=== PATIENT | male | born 1930 | race Caucasian/White ===

== ENCOUNTER 2017-06-05 08:13 | Observation (INO) | payer BC ==
[~2017-06-05] VITALS: Ht 185.4 cm; Wt 79.6 kg
--- OUTSIDE RECORDS SUMMARY | ~2017-06-05 | XMS | Clinical Summary ---
Demographics + + + | Address | [address] | | | [place] [address] | + + + | Home Phone | | + + + | Preferred Language | Unknown | + + + | Marital Status | | + + + | Uatsdin Affiliation | Unknown | + + + | Race | Unknown | + + + | Ethnic Group | Unknown | + + + Author + + + | Author | [facility] | | | and [place] | + + + | Organization | [facility] | | | and [place] | + + + | Address | Unknown | + + + | Phone | Unavailable | + + + Support + + +---------+ + | Name | Relationship | Address | Phone | + + +---------+ + | EYAD ZENDEJAS ECON | Unknown | | + + +---------+ + Care Team Providers + +------+ + | Care Child And Family Services Specialist Name | Role | Phone | + +------+ + PP | Unavailable | + +------+ + Allergies Not on File Current Medications Not on file Active Problems Not on file Social History + +-------+ +--------+------+ | Tobacco Use | Types | Packs/Day | Years | Date | | | | | Used | | + +-------+ +--------+------+ | Never Assessed | | | | | + +-------+ +--------+------+ + + + | Sex Assigned at | Date Recorded | | | | + + + | Not on file | | + + + Plan of Treatment + + + + + | Health Maintenance | Due Date | Last Done | Comments | + + + + + | Vaccine: | | | | | Dtap/Tdap/Td (1 - | 0 | | | | Tdap) | | | | + + + + + | Vaccine: Zoster (#1) | | | | | | 1 | | | + + + + + | Vaccine: | | | | | Pneumococcal 65+ | 6 | | | | Low/Medium Risk (1 | | | | | of 2 - PCV13) | | | | + + + + + | Vaccine: Influenza | | | | | (Season Ended) | 8 | | | + + + + + Results Not on filefrom Last 3 Months"
--- OUTSIDE RECORDS SUMMARY | ~2017-06-05 | XMS | Clinical Summary ---
Demographics + + + | Address | [address] | | | [place] [address] | + + + | Home Phone | | + + + | Preferred Language | Unknown | + + + | Marital Status | Unknown | + + + | Mormon Affiliation | Unknown | + + + | Race | Unknown | + + + | Ethnic Group | Unknown | + + + Author + + + | Author | [facility] [employer] | + + + | Organization | [facility] | + + + | Address | Unknown | + + + | Phone | Unavailable | + + + Support + + +---------+ + | Name | Relationship | Address | Phone | + + +---------+ + | Kelli Syed | ECON | Unknown | | + + +---------+ + Care Team Providers + +------+ + | Care Senior Hadoop Developer Name | Role | Phone | + +------+ + | Hitzman, Daniel C MD | PP | | + +------+ + Allergies + + + + + + | Active Allergy | Reactions | Severity | Noted | Comments | | | | | Date | | + + + + + + | Latex | Hives, Rash | High | 01/25/20 | | | | | | 16 | | + + + + + + Current Medications + + +--------+---------+------+------+-------+ | Prescription | Sig. | Disp. | Refills | Star | End | Statu | | | | | | t | Date | s | | | | | | Date | | | + + +--------+---------+------+------+-------+ | Nattokinase 100 MG | Take 100 mg by mouth | | | | | Activ | | CAPS | every evening. | | | | | e | + + +--------+---------+------+------+-------+ | lisinopril | Take 5 mg by mouth | | | | | Activ | | (ZESTRIL) 5 MG | daily. | | | | | e | | tablet | | | | | | | + + +--------+---------+------+------+-------+ | spironolactone | Take 25 mg by mouth | | | | | Activ | | (ALDACTONE) 25 MG | daily. | | | | | e | | tablet | | | | | | | + + +--------+---------+------+------+-------+ | guaiFENesin | Take 600 mg by mouth | | | | | Activ | | (MUCINEX) 600 MG 12 | 2 (two) times | | | | | e | | hr tablet | daily. | | | | | | + + +--------+---------+------+------+-------+ | potassium chloride | Take 20 mEq by mouth | | | | | Activ | | SA (KSERVANDO HERNANDEZ) | 2 (two) times daily | | | | | e | | 20 MEQ tablet | with meals. | | | | | | + + +--------+---------+------+------+-------+ | levothyroxine | Take 100 mcg by | | | | | Activ | | (SYNTHROID) 100 MCG | mouth every morning | | | | | e | | tablet | before breakfast. | | | | | | + + +--------+---------+------+------+-------+ | Cholecalciferol | Take 5,000 Units by | | | | | Activ | | 5000 UNITS capsule | mouth daily. | | | | | e | + + +--------+---------+------+------+-------+ | melatonin 3 MG | Take 3 mg by mouth | | | | | Activ | | TABS | nightly. | | | | | e | + + +--------+---------+------+------+-------+ | Coenzyme Q10 | Take 50 mg by mouth | | | | | Activ | | (COQ10) 50 MG CAPS | 2 (two) times daily. | | | | | e | + + +--------+---------+------+------+-------+ | furosemide (LASIX) | Take 0.5 tablets by | | | 11/2 | | Activ | | 80 MG tablet | mouth 2 (two) times | | | 9/20 | | e | | | daily. | | | 16 | | | + + +--------+---------+------+------+-------+ | carvedilol (COREG) | Take 0.5 tablets by | 60 | 2 | 01/2 | | Activ | | 25 MG tablet | mouth 2 (two) times | tablet | | 5/20 | | e | | | daily with meals. | | | 17 | | | + + +--------+---------+------+------+-------+ | digoxin (LANOXIN) | Take 1 tablet by | 60 | 2 | 02/27 | | Activ | | 0.125 MG tablet | mouth daily. | tablet | | 07/15 | | e | | | | | | 17 | | | + + +--------+---------+------+------+-------+ Active Problems + + + | Problem | Noted Date | + + + | Persistent atrial fibrillation (HCC) | 01/25/2016 | + + + | Benign hypertension | 01/25/2016 | + + + | Cardiomyopathy (HCC) | 01/25/2016 | + + + Family History + + +------+ + | Medical History | Relation | Name | Comments | + + +------+ + | Diabetes type II | Mother | | | + + +------+ + | Heart disease | Mother | | | + + +------+ + + +------+ + + | Relation | Name | Status | Comments | + +------+ + + | Father | | | no history | + +------+ + + | Maternal Grandfather | | | | + +------+ + + | Maternal Grandmother | | | COPD, (smoker) | | | | (Age | | | | | 78) | | + +------+ + + | Mother | | | DMII, heart disease | | | | (Age | | | | | 76) | | + +------+ + + Social History + + + +--------+ + | Tobacco Use | Types | Packs/Day | Years | Date | | | | | Used | | + + + +--------+ + | Former Smoker | Cigarettes, Pipe | 1 | 15 | Quit: 02/26/1962 | + + + +--------+ + + +---+---+---+ | Smokeless Tobacco: | | | | | Never Used | | | | + +---+---+---+ + + +---------+ + | Alcohol Use | Drinks/We | oz/Week | Comments | | | ek | | | + + +---------+ + | No | 0 | 0.0 | | | | Standard | | | | | drinks or | | | | | | | | | | equivalen | | | | | t | | | + + +---------+ + + + + | Sex Assigned at | Date Recorded | | | | + + + | Not on file | | + + + Last Filed Vital Signs + + + + | Vital Sign | Reading | Time Taken | + + + + | Blood Pressure | 116/82 | 03/22/2016 11:08 AM PST | + + + + | Pulse | 163 | 03/22/2016 11:08 AM PST | + + + + | Temperature | - | - | + + + + | Respiratory Rate | 22 | 01/25/2016 3:10 PM PST | + + + + | Oxygen Saturation | 94% | 03/22/2016 11:08 AM PST | + + + + | Inhaled Oxygen | - | - | | Concentration | | | + + + + | Weight | 96 kg (211 lb 11.2 | 03/22/2016 11:08 AM PST | | | oz) | | + + + + | Height | 185.4 cm (6' 1") | 03/22/2016 11:08 AM PST | + + + + | Body Mass Index | 27.93 | 03/22/2016 11:08 AM PST | + + + + Plan of Treatment + [...] + Results Not on filefrom Last 3 Months Insurance +---------+--------+ +------+-------+ + | Payer | Benefi | Subscriber | Type | Phone | Address | | | t Plan | ID | | | | | | / | | | | | | | Group | | | | | +---------+--------+ +------+-------+ + | PREMERA | PREMER | xxxxxxxxx | | | [address] [address] | | | A BLUE | | | | [place] | | | [place]OSS | | | | [phone] | | | FED | | | | | | | PPO | | | | | +---------+--------+ +------+-------+ + + +--------+ +--------+ + + | Guarantor Name | Accoun | Relation to | Date | Phone | Billing Address | | | t Type | Patient | of | | | | | | | | | | + +--------+ +--------+ + + | CHAVEZ ZENDEJAS | Person | Self | [birth year] | Work: | [employer] [place], | | | bill/[employer] | | 1931 | [phone] | | | kumar | | | [phone]: | | | | | | | | | | | | | | [phone] | | | | | | [phone] | | + +--------+ +--------+ + +
--- OUTSIDE RECORDS SUMMARY | ~2017-06-05 | XMS | Clinical Summary ---
Demographics + + + | Address | [address] | | | [place] [address] | + + + | Home Phone | | + + + | Preferred Language | Unknown | + + + | Marital Status | | + + + | Uatsdin Affiliation | Unknown | + + + | Race | Unknown | + + + | Ethnic Group | Unknown | + + + Author + + + | Author | [facility] | | | and [place] | + + + | Organization | [facility] | | | and [...] Team Providers + +------+ + | Care Air And Water Tester Name | Role | Phone | + [...]
--- OUTSIDE RECORDS SUMMARY | ~2017-06-05 | XMS | Clinical Summary ---
Demographics + + + | Address | [address] | | | [place] [address] | + + + | Home Phone | | + + + | Preferred Language | Unknown | + + + | Marital Status | Single | + + + | Pentecostalism Affiliation | Unknown | + + + | Race | Unknown | + + + | Ethnic Group | Other Race | + + + Author + + + | Author | [facility] | + + + | Organization | [facility] | + + + | Address | Unknown | + + + | Phone | Unavailable | + + + Care Team Providers + +------+ + | Care Storage Wharfage Clerk Name | Role | Phone | + +------+ + PP | Unavailable | + +------+ + Source Comments DAINA is fully live on both [facility] and [facility] InPatient.[facility] Allergies Not on File Current Medications Not [...] | + + + + + | INFLUENZA VACCINE | | | | | (FLU SHOT) | 8 | | | + + + + + Results Not on filefrom Last 3 Months"
--- OUTSIDE RECORDS SUMMARY | ~2017-06-05 | XMS | Clinical Summary ---
Demographics + + + | Address | [address] | | | [place] [address] | + + + | Home Phone | | + + + | Preferred Language | Unknown | + + + | Marital Status | Single | + + + | Bahai Affiliation | Unknown | + + + | Race | Unknown | + + + | Ethnic Group | Other Race | + + + Author + + + | Author | [facility] | + + + | Organization | [facility] | + + + | Address | Unknown | + + + | Phone | Unavailable | + + + Care Team Providers + +------+ + | Care Software Installer Name | Role | Phone | + +------+ + PP | Unavailable | + +------+ + Source Comments DAINA is fully live on both [facility] and [facility] InPatient.[facility] Allergies Not on File Current Medications Not [...]
--- OUTSIDE RECORDS SUMMARY | ~2017-06-05 | XMS | Clinical Summary ---
Demographics + + + | Address | [address] | | | [place] [address] | + + + | Home Phone | | + + + | Preferred Language | Unknown | + + + | Marital Status | Unknown | + + + | Pentecostal Affiliation | Unknown | + + + | Race | Unknown | + + + | Ethnic Group | Unknown | + + + Author + + + | Author | [facility] [employer] | + + + | Organization | [facility] | + + + | Address | Unknown | + + + | Phone | Unavailable | + + + Support + + +---------+ + | Name | Relationship | Address | Phone | + + +---------+ + | Kelli Syed | ECON | Unknown | | + + +---------+ + Care Team Providers + +------+ + | Care Manager Sharepoint Name | Role | Phone | + [...] | xxxxxxxxx | | | [address] [address] | | | A BLUE | | | | [place] | | | [place] | | | | [phone] | | | FED | | | [...] | | bill/[employer]ani | | 1931 | [phone] | | | kumar | | | [phone]: | | | | | | | | | | | | | | [phone] | | | | | | | [phone] | | + +--------+ +--------+ + +
[2017-06-05] MEDS ORDERED: DIGOXIN125 MCG PO (08:44)
--- NOTE | 2017-06-05 12:43 | NUR ---
IV WAS STARTED IN THE ED. IT IS ACTUALLY IN THE LFT FOREARM NOT THE AC. FLUSHES EASILY.
[2017-06-05] MEDS ORDERED: LASIX80 MG PO (13:20)
--- NOTE | 2017-06-05 16:03 | NUR ---
been resting in bed, friend in room with him.
--- NOTE | 2017-06-05 16:44 | NUR ---
PATIENT SITTING UP IN BED. PATIENTS VISITOR IN ROOM. FRESH ICE WATER. CALL LIGHT WITHIN REACH. NO OTHER NEEDS AT THIS TIME.
[2017-06-05] MEDS ORDERED: APPLE CIDER VI600 MG PO (17:01)
[2017-06-05] MEDS ORDERED: NATTOKINASE PO (17:03)
[2017-06-05] MEDS ORDERED: BEET ROOT PO (17:04)
[2017-06-05] MEDS ORDERED: DIGESTIVE ENZYMES PO (17:06)
[2017-06-05] MEDS ORDERED: [UNRECOGNIZED DRUG - OTHER] (17:06)
--- NOTE | 2017-06-05 17:50 | NUR ---
VERY OPINIONATED, GETS UP QUICKLY TO URINATE. ELEVATING SCROTUM WITH TOWEL TO HELP REDUCE SWELLING. YOMBA SHOSHONE, RIGHT EAR BEST.
--- NOTE | 2017-06-05 18:40 | NUR ---
PATIENT SITTING UP IN BED VISITING WITH FAMILY MEMBERS. FRESH ICE WATER. CALL LIGHT WITHIN REACH. NO OTHER NEEDS AT THIS TIME.
--- NOTE | 2017-06-05 19:16 | NUR ---
IN ROOM FOR REPORT, PT HAS VISITORS IN THE ROOM AT THIS TIME. CALL LIGHT IS IN REACH AND PT DENIES NEEDS AT THIS TIME.
--- NOTE | 2017-06-05 21:14 | NUR ---
PT IS AWAKE IN BED, RT IS IN THE ROOM AT THIS TIME.
--- NOTE | 2017-06-05 21:45 | NUR ---
HELPED PT BACK TO BED FROM THE RESTROOM. TELE LEADS REPLACED AND PT IS BACK IN BED. PT STATES HE HAS SOME SORENESS IN LEGS FROM SWELLING BUT DENIES THE NEED OF TYLENOL AT THIS TIME. PT DENIES FURTHER NEEDS AT THIS TIME, CALL LIGHT IS WTIHIN REACH AND BED ALARM ON.
--- NOTE | 2017-06-05 23:18 | NUR ---
PT IS RESTING WITH EYES CLOSED, RESPIRATIONS ARE EVEN AND NONLABORED. CALL LIGHT IS WITHIN REACH AND BEDALARM IS ON.
--- NOTE | 2017-06-06 01:09 | NUR ---
PT IS RESTING WITH EYES CLOSED, RESPIRATIONS ARE EVEN AND NONLABORED. CALL LIGHT IS WITHIN REACH AND BED ALARM IS ON.
--- NOTE | 2017-06-06 03:04 | NUR ---
PT IS RESTING WITH EYES CLOSED, RESPIRATIONS EVEN AND NONLABORED. CALL LIGHT IS WITHIN REACH AND BEDALARM IS ON.
--- NOTE | 2017-06-06 04:58 | NUR ---
PT SLEPT WELL THROUGH THE NIGHT, HE IS A SBA WITH CANE. HE WEARS ATTENDS INCASE HE CANNOT MAKE IT TO THE RESTROOM IN TIME. HE IS ON TELE #8 HR RATE IS IRREGULAR. HE IS SWOLLEN IN BILAT LOWER EXTREMITIES AND SCROTUM. PT STATES IT IS BETTER BECAUSE HE "CAN SEE HIS KNEES NOW".
--- NOTE | 2017-06-06 05:03 | NUR ---
PT IS RESTING WITH EYES CLOSED, RESPIRATIONS ARE EVEN AND NONLABORED. CALL LIGHT IS WITHIN REACH.
--- NOTE | 2017-06-06 06:36 | EKG ---
[facility] [address] [facility] [place] [address] Signed Atrial fibrillation with rapid ventricular response Right bundle branch block Left anterior fascicular block Bifascicular block Septal infarct , age undetermined Abnormal ECG No previous ECGs available Confirmed by YARY GUTIERREZ MD ([id number]) on 06/06/2017 6:36:37 AM Electronically Signed By: YARY GUTIERREZ MD 06/06/17 0636 PATIENT NAME: CHAVEZ ZENDEJAS Electrocardiogram DATE OF : 30 PHYSICIAN: YARY GUTIERREZ MD REPORT #: [id number] REPORT IS CONFIDENTIAL AND NOT TO BE RELEASED WITHOUT AUTHORIZATION
--- NOTE | 2017-06-06 07:42 | NUR ---
PT AWAKE AND ALERT. SITTING UP IN BED. STATES THEY HAVE CHRONIC NECK PAIN AND USES ROLLED TOWELS/BLANKETS FOR HEAD SUPPORT. DENIES NEEDS AT THIS TIME.
--- NOTE | 2017-06-06 09:16 | NUR ---
PT UP IN CHAIR FROM BATHROOM. DENIED DIZZINESS WHILE STANDING. USES CANE APPROPRIATLEY. STATES THEY ARE OK LONG THEY MOVE SLOWLY. GOWN CHANGED. LUNGS CLEAR. PT STATES UNDERSTANDING OF DILTIAZEM THERAPY AND STATES THEY ARE OK CONTINUING TO TAKE IT AFTER DISCHARGE. PT STATES INCREASED ABDOMINAL DISTENTION AND ABD IS FIRM. DENIES PAIN. PT IS EAGER TO GO HOME.
[2017-06-06] MEDS ORDERED: DILTIAZEM 24HR120 MG PO (09:22)
--- NOTE | 2017-06-06 10:40 | NUR ---
DC INSTRUCTIONS GIVEN ABOUT A-FIB AND DILTAZEM THERAPY. PT VERBALIZED UNDERSTANDING. ALL QUESTIONS ANSWERED. IV REMOVED WNL. VS STABLE. PT OUT IN WHEELCHAIR WITH BARRON KOCH. DC TO HOME.
--- NOTE | 2017-06-07 08:22 | NUR ---
REFERRAL FOR CHW DONE. TALKED WITH SUMMER ABOUT IT.
== END 2017-06-06 10:35 | disposition home or self-care (01) ==
LOC: ED 08:13 → MS 08:16
PROVIDERS: ADMIT Internal Medicine
DX: I48.91 Unspecified atrial fibrillation (principal); I25.5 Ischemic cardiomyopathy; I87.8 Other specified disorders of veins; R91.8 Other nonspecific abnormal finding of lung field; J90 Pleural effusion, not elsewhere classified; R60.9 Edema, unspecified; Z91.14 Patient's other noncompliance with medication regimen; Z87.891 Personal history of nicotine dependence; Z91.040 Latex allergy status; Z79.899 Other long term (current) drug therapy
CPT/HCPCS: 36415; 71045; 80048; 80053; 83735; 83880; 84484; 85025; 85610; 85730; 93005; 93010; 96374; 99285; G0378

== ENCOUNTER 2017-08-27 00:07 | Inpatient (IN) | payer BC ==
[~2017-08-27] VITALS: Ht 185.4 cm; Wt 75.9 kg
[~2017-08-27 00:07] MED LIST: APPLE CIDER VI600 MG PO; BEET ROOT PO; DIGESTIVE ENZYMES PO; DIGOXIN125 MCG PO; DILTIAZEM 24HR120 MG PO; LASIX80 MG PO; NATTOKINASE PO; [UNRECOGNIZED DRUG - OTHER]
--- NOTE | 2017-08-27 02:20 | NUR ---
PATIENT ARRIVED TO FLOOR VIA STRETCHER. O2 SATTURATION IS 96% ON 3L O2 VIA OXYMASK, TACHYPNEA NOTED. PATIENT STATES THAT HE IS COLD, REQUESTING WARM BLANKETS. DENIES FURHTER NEEDS.
--- NOTE | 2017-08-27 02:45 | NUR ---
ASSESSMENT DONE, PATIENT APPEARS MORE COMFORTABLE, DENIES NEEDS AT THIS TIME. CALL [facility] WITHIN REACH.
--- NOTE | 2017-08-27 03:18 | NUR ---
CARDIZEM GTT TITRATED (SEE EMAR FOR DETAILS), PATIENT DENIES NEEDS AT THIS TIME.
--- NOTE | 2017-08-27 03:50 | NUR ---
CADIZEM GTT TITRATED (SEE EMAR FOR DETAILS), PATIENT DENIES NEEDS AT THIS TIME. CALL LIGHT WITHIN REACH.
--- NOTE | 2017-08-27 05:00 | NUR ---
TITRATED CARDIZEM GTT TO 15 MG/HR. PATIENT REPORTS SEVERE BLADDER SPASMS WITH A "BURNING SENSATION" WITH 8/10 PAIN WHEN THEY OCCUR. RR IS ALSO ELEVATED. HEART RATE CONTINUES TO REMAIN ABOVE 100. DR. GUTIERREZ MADE AWARE OF PATIENT'S CURRENT CONDITION, RECEIVED ORDER FOR [place] FOR PAIN MANAGEMENT. NO NEW ORDERS REGADING CARDIZEM GTT AND HEART RATE. ABG TO BE DONE REGARDING PATIENT'S RR.
--- NOTE | 2017-08-27 05:20 | NUR ---
RT IN TO DRAW ABG, PATIENT REFUSING TO HAVE ABG DRAWN AND STATES "THERE IS NO NEED FOR THAT. I AM JUST IN PAIN." EDUCATED PATIENT ABOUT IMPORTANCE OF ABG, CONINUES TO REFUSE ABG.
--- NOTE | 2017-08-27 05:30 | NUR ---
DR. GUTIERREZ NOTIFIED ABOUT PATIENT REFUSING ABG, DR. GUTIERREZ STATES "IT IS OKAY FOR NOW, BUT I STILL WANT AN ABG DONE."
--- NOTE | 2017-08-27 05:40 | NUR ---
PATIENT GIVEN PRN NORCO FOR BLADDER SPASM PAIN. PATIENT REPORTS 8/10 PAIN WHEN SPASM OCCURS.
--- NOTE | 2017-08-27 05:43 | NUR ---
ADMINISTERED PHENAZOPYRIDINE PER ORDER. PATIENT CONINUES TO REPORTS OCCASIONAL BLADDER SPASM. DENIES NEEDS AT THIS TIME.
--- NOTE | 2017-08-27 05:48 | EKG ---
[facility] [address] [facility] [place] [address] Signed Atrial fibrillation with rapid ventricular response Right bundle branch block Left anterior fascicular block Bifascicular block Septal infarct (cited on or before 05-JUN-2017) Abnormal ECG When compared with ECG of 05-JUN-2017 08:30, Questionable change in initial forces of Septal leads Confirmed by YARY GUTIERREZ MD ([id number]) on 08/27/2017 5:48:19 AM Electronically Signed By: YARY GUTIERREZ MD 08/27/17 0548 PATIENT NAME: CHAVEZ ZENDEJAS Electrocardiogram DATE OF : 30 PHYSICIAN: YARY GUTIERREZ MD REPORT #: [id number] REPORT IS CONFIDENTIAL AND NOT TO BE RELEASED WITHOUT AUTHORIZATION
--- NOTE | 2017-08-27 06:15 | NUR ---
DR. GUTIERREZ IN TO SEE AND ASSESS PATIENT.
--- NOTE | 2017-08-27 07:37 | NUR ---
Pt resting in bed with visitors at bedside. morning assessment complete. pt having increased shortness of breath with conversation. fine crackles in bilaterl lower bases. discussed with pt the need for an ABG. pt agreeable to ABG at this time.
--- NOTE | 2017-08-27 08:15 | NUR ---
RT IN ROOM TO DRAW PT BLOOD GAS.
--- NOTE | 2017-08-27 08:21 | NUR ---
PT HR IN THE 80-90'S. REMAINS IN ATRIAL FIBRILATION. PT BLOOD PRESSURE 108/53. TURNED CARDIZEM DRIP DOWN TO 10ML/HR.
--- NOTE | 2017-08-27 09:30 | NUR ---
TITRATED CARDIZEM DRIP TO 7.5ML/HR.
--- NOTE | 2017-08-27 09:53 | NUR ---
IN ROOM TO GIVE PT BED BATH AND CATH CARE. PT HAS SIGNIFICANT AMOUNT OF SCROTAL EDEMA. SMALL AMOUNT OF SEROUSANG DRAINAGE SURROUNDING FLORES CATHETER. DRAINAGE OLD AND POSSIBLY FROM FLORES INSERTION. PT SKIN DRY AND FLAKY. CLEASNED SKIN AND APPLIED LOTION. PT TOLERATED BED BATH WELL. DISCUSSED GETTING UP INTO CHAIR FOR LUNCH. PT AGREEABLE.
--- NOTE | 2017-08-27 10:42 | NUR ---
PT HR IN THE 80-90'S. TITRATED PT TO 5MG/HR. PT CURRENTLY RESTING IN BED WITH EYE'S CLOSED. RESPIRATIONS HAVE SLOWED WHILE SLEEPING. CURRENT RATE 16.
--- NOTE | 2017-08-27 11:00 | NUR ---
pt complaining of bladder spasms. rating pain 10/05. gave 1 tab norco 5/325 po.
--- NOTE | 2017-08-27 11:39 | NUR ---
PT CONTINUES TO COMPLAIN OF BLADDER SPASMS. NOTIFIED. ORDER FOR MORPHINE GIVEN.
--- NOTE | 2017-08-27 11:48 | NUR ---
gave pt 2mg morphine iv for bladder spasms.
--- NOTE | 2017-08-27 12:03 | NUR ---
TITRATED CARDIAZEM DRIP TO 2.5MG/HR.
--- NOTE | 2017-08-27 13:41 | NUR ---
ENTERED PT'S RM, HE IS ALERT AND ORIENTED. INTRO MYSELF, PT SEEMED PLEASED FOR A MOMENT. HE STATED THAT HE IS AMISH, AND THAT HIS HIDE TANNER WAS HERE MOST OF THE NIGHT. HE SAID HE SENT THEM HOME TO GET SOME REST. ANSWERS SHORT, REQUESTED PRAYER. WILL FOLLOW NEEDED
--- NOTE | 2017-08-27 13:59 | NUR ---
TITRATED PTS IV CARDIAZEM OFF. PT HR IN THE 80'S. REMAINS IN A-FIB.
--- NOTE | 2017-08-27 14:25 | NUR ---
IN ROOM WITH PT TO DISCUSS TRANSFER TO MED SURG FLOOR.
--- NOTE | 2017-08-27 14:55 | NUR ---
PT HAD EPISODE OF NAUSEA AND VOMITTING. CALLED MD FOR ZOFRAN ORDER. GAVE 4MG ZOFRAN IV.
--- NOTE | 2017-08-27 16:46 | NUR ---
pt continues to have nausea after zofran. notified. order given for 5mg reglan iv.
--- NOTE | 2017-08-27 17:10 | NUR ---
PT TRANSFERED TO MED/SURG, REPORT TAKEN FROM CCU RN. PT APPEARS TO BE HAVING DIFFICULTY BREATHING. RR = 32. VITALS TAKEN. ASSESSMENT DONE, CRACLEKS NOTED THROUGHOUT LUNGS. MD CALLED, MD STATES NO ORDERS AT THIS TIME, CONTINUE TO MONITOR. PT REPORTS NAUSEA. CCU RN STATES ONE TIME DOSE OF REGLAN WAS JUST GIVEN. PT UNABLE TO REPORTS WHEN LAST BM OCCURED. PT REPORTS PAIN BUT IS UNWILLING TO USE PAIN SCALE. FACES PAIN SCALE SHOWS 4/10 PAIN. SEE MAR FOR MEDICAITON GIVEN. BED RAILS UP. CALL LIGHT WITHIN REACH.
--- NOTE | 2017-08-27 18:30 | NUR ---
medicated wtih Zofran 4mg IV c/o dry heaving,. Pt up in bed
--- NOTE | 2017-08-27 18:41 | NUR ---
THIS RN TO ROOM TO CHECK ON PT. PT RESTING WITH EYES CLOSED, AWAKENS TO VOICE. RR = 28. PT CONTINUES TO REPORT NAUSEA. BED RAILS UP. CALL LIGHT WITHIN REACH.
--- NOTE | 2017-08-27 18:47 | NUR ---
PT TRANFERED FROM CCU TODAY AT 1710, HERE FOR AFIB, CHF EXACERBATION. TELE #10, DILTIAZIM DRIP TODAY ENDING AT 1445. 2-3L O2 BY NC, SOB. IV LASIX TODAY. FLORES CATHETER. ABG TODAY. BED BATH TODAY. PRN NORCO FOR PAIN. PIV RIGHT FA, SL. PT NAUSEATED TODAY, PRN ZOFRAN. PT USING CALL LIGHT APPROPRIATLY.
--- NOTE | 2017-08-27 19:15 | NUR ---
RECEIVED REPORT FROM DAY NURSE ALAYNA. PT HAS FRIENDS IN ROOM WITH HIM, CURTAINS OPEN, DOOR SHUT, EYES CLOSED, OCCASSIONAL RESPONSE TO HIS FRIENDS.
--- NOTE | 2017-08-27 20:35 | NUR ---
PT FRIENDS STATED THAT THEY GAVE PT APPLEVINEGAR TABLETS X2 DUE TO PT REQUESTING STATING THAT HE USUALLY TAKES BEFORE HE EATS. QUESTIONED PT, HE STATED HE "FELT BETTER" HE HAS BEEN VOMITING OFF AND ON SINCE THIS SHIFT STARTED. DR GUTIERREZ VERBALLY AGREED HE COULD TAKE THEM. DR GUTIERREZ AWARE OF THE COLOR OF VOMIT AT THIS TIME. PT WITH CALL LIGHT, O2 2 LITERS, FLORES WITH YELLOW URINE. MORPHINE GIVEN 2027 FOR PAIN "ALL OVER" RESP 22. TEL WITH HR'S IN 90-100'S WITH SOME HIGHS IN THE 120'S. CALL LIGHT WITHIN REACH AT THIS TIME.
--- NOTE | 2017-08-27 21:40 | NUR ---
PT HAS CONTINUED TO VOMIT OFF AND ON, WITH 100 CC BEING THE LARGEST AMOUNT, AND OTHERS WITH TARI "TABLESPOON", COLOR IS DARK, SMELLS OF RUST, PT COUGHING UP PHLEGM. WITH ASSISTANCE OF FOREST EXAMINER, PT REPOSITIONED IN BED, HE STATED THAT IT "FELT" BETTER. NOTIFIED DR. GUTIERREZ OF CONDITION, ONE TIME DOSE OF ZOFRAN GIVEN PER ORDER. PT STATED THAT THE PAIN MED DID HELP SOME OF HIS PAIN.
--- NOTE | 2017-08-27 22:30 | NUR ---
NOTIFIED DR GUTIERREZ OF PT CONDITION, SATS DROPPED INTO THE 80'S, NOW ON OXIMASK @ 6L; LUNGS COARSE PER THE RT AFTER THIS NURSE REQUESTED HIM COME ASSESS PT HAS HE HAS MOIST SOUNDS HE BREATHS, HIS COMPLAINT OF WEAK AND TIRED OUT, HR IN THE 120'S; RESP 28; MED PT WITH MORPHINE. DR GUTIERREZ TO FLOOR, RT VERBALIZED CONCERNS TO MD, WELL THIS NURSE. ORDERED ABDOMINAL XRAY; UA. DISCUSSED WITH PT THE POSSIBILITY OF NG TUBE TO HELP WITH THE NAUSEA, DISTENTION ABD. PT AGREED.
--- NOTE | 2017-08-27 22:54 | NUR ---
V/S AND I/O DONE AND CHARTED.
--- NOTE | 2017-08-27 23:50 | NUR ---
MED PT WITH ATIVAN @2305 PRIOR TO NG TUBE PLACEMENT. WITH LIDOCAINE, 16FR NG TUBE PLACED RIGHT NARES, WITH EASE, PT TOLERATED WELL. IMMEDIATELY LARGE AMOUNT OF DARK COLORED STOMACH CONTENTS OUT, SAMPLE SENT TO LAB. XRAY CONFIRMED PLACEMENT. LOW INTERMENT CONTINOUS SUCTION WITH IMMEDIATELY 300-400 OUTPUT WITHIN THE FIRST 30 MIN. PT WITH OXIMASK AT 6 L O2, RT DISCUSSED WITH DR GUTIERREZ, WHO SUGGESTED TO LEAVE THE O2 AT 6 L. RESP LESS THAN 28 POST INSERTION OF NG. PT WITH HOB ELEVATED. CONT TO MONIOR.
--- NOTE | 2017-08-28 02:37 | NUR ---
MED WITH 1MG LORAZEPAM DUE TO AGITATION R/T NG TUBE, PT ATTEMPTING TO COUGH AND HAS BEEN SUCCESSFUL IN DEEP COUGHING, BUT INADVERTENTLY TRIES TO PULL ON THE NG TUBE, TAKES THE OXIMASK OFF WELL. RT IN TO ASSESS, VERBALIZED TO PT TO COUGH WHICH PT WAS ABLE TO. CURRENTLY RESP 16, HR READING 131 AND O2 93 PER PULSEOX. HOB ELEVATED. OXIMASK HAS BEEN OVER MOUTH DUE TO MOUTH BREATHING. ACADEMIC PROGRAM SPECIALIST PROVIDING 1:1 CARE TO PREVENT PT FROM PULLING TUBE.
--- NOTE | 2017-08-28 03:24 | NUR ---
RESP 16, HR PER TELE RANGING FROM 100-150'S, PT WOKE PRIOR TO THIS AND COUGHED SOME, BUT NEEDS TO COUGH TO CLEAR HIS LUNGS, UNABLE. CONTINUE TO SAT IN THE 90'S WITH OCCASSIONAL 80'S WHEN HE COUGHS. STOMACH FEELS SOFTER, STILL DISTENDED; EDEMA REMAINS MARYA LE; LT ARM; SL FLUSHES WELL; NG TUBE CONTINUES TO PUT OUT DARK LIQUID, 500+ IN CONTAINER. CALL LIGHT WITHIN REACH.
--- NOTE | 2017-08-28 04:00 | NUR ---
RT AND THIS RN WENT INTO ROOM, AFTER RN EXPRESSED CONCERN OVER THE CONGESTION PT WAS HAVING. PT WITH LIGHT BELCHER COLOR PHELGM LIKE SUBSTANCE ON TONGUE, LIPS, RT SUCTIONED MOUTH, WAS ABLE TO SUCTION MORE. ONCE RT DONE, PT "SOUNDED BETTER", LESS CONGESTION. O2 STATS ABOVE 90, HR BETWEEN 130-150; PT DIDN'T RESPOND PHYSICALLY. NG CONTINUES WITH DARK LIQUID IN TUBING, NO CHANGE IN COLOR SINCE THIS SHIFT STARTED. HOB ELEVATED.
--- NOTE | 2017-08-28 06:34 | NUR ---
NOTIFIED DR GUTIERREZ CURRENT CONDITION, URINE OUTPUT, NG OUTPUT, EVENTS AFTER MIDNIGHT SUCH SUCTIONING, LORAZAPAM, THE POSITIVE OCCULT EMESIS. STATES AWAIT THE RESULTS OF THE MORNING LABS.
--- NOTE | 2017-08-28 06:35 | NUR ---
PT WITH NG LOW INTERMENT SUCTION WITH 600CC DARK POSITIVE OCCULT BLOOD. OXIMASK AT 4LO2 SATING HIGH 90'S-100. TEL WITH HR IN THE 130'S-150'S, DR GUTIERREZ AWARE WELL THE LOW URINE OUTPUT. PT WITH 2 DOSES LORAZEPAM THIS SHIFT, MORPHINE FOR ABDOMINAL PAIN WELL. HEEL PROTECTORS IN PLACE. SL RFA, FLUSHES WELL.
--- NOTE | 2017-08-28 07:30 | NUR ---
86 YR OLD MALE PATIENT TRANSFERRED TO CCU FROM MED-SURG UNDER DR. GUTIERREZ VIA BED WITH DX AFIB/RVR. BEDSIDE REPORT RECIEVED. UPON ADMIT PATIENT IS OBTUNDED. HAS UPPER AIRWAY SECRETIONS, ORAL SUCTION DONE. HR-130 TO 150. CARDIZEM GTT HUNG AT 10 MG/HR. WILL TITRATE PRN. HOB ELEVATED. LEGS, SCROTUM, ABD ARE EDEMATOUS. O2 AT [address] L [address]MASK IN PL[address]. NG TO LIS, DARK GREENISH CONTENTS NOTED IN TUBING. IV 20 GA STARTED TO LEFT FA. DR. GUTIERREZ HERE TO SEE PATIENT. FLORES CATH PATENT WITH SMALL AMOUNT OF ORANGE COLORED URINE NOTED.
--- NOTE | 2017-08-28 08:50 | NUR ---
PATIENT UNABLE TO ANSWER QUESTIONS. DR GUTIERREZ AND NEGRA RN IN ROOM.
--- NOTE | 2017-08-28 09:50 | NUR ---
UPON ENTERING ROOM, PATIENT COLOR DUSKY, NOT MOVING AIR. O2 TO [address] GUTIERREZ AWARE, RT IN ROOM. BIPAP ORDERED.
--- NOTE | 2017-08-28 10:00 | NUR ---
BIPAP APPLIED. 12/6, 30%, RATE 10.
--- NOTE | 2017-08-28 10:39 | NUR ---
REMAINS OBTUNDED. CARDIZEM GTT OFF. ON BIPAP AT 18/5, RATE-16, FIO2-40% DR. GUTIERREZ IS AT BEDSIDE. IS AWARE OF MOST RECENT ABG RESULTS.
--- NOTE | 2017-08-28 10:43 | NUR ---
BP-73/40 (49). DR. GUTIERREZ AWARE. BOLUS OF NS 250 TO BE GIVEN. THIS HUNG.
--- NOTE | 2017-08-28 10:55 | NUR ---
VASOPRESSIN HUNG PER ORDERS.
--- NOTE | 2017-08-28 11:36 | NUR ---
LAUREANO AGUILERA NOTED PT'S CONDITION HAS WORSENED. DR GUTIERREZ IN TO ASSESS PT AND DETERMINE NEXT COURSE OF CARE. PT'S DAUGHTER IN [place] HAS CALLED AND UPDATED-PT IS STILL A FULL CODE. WILL CONTINUE TO FOLLOW, AND OFFERED TO MAKE NOTIFICATIONS OF ANY CNHANGE IF NEEDED
--- NOTE | 2017-08-28 12:00 | NUR ---
INTABATED SIZE 8 ETT. TAPED 22 AT TEETH. END TITAL CO2-45. SEE MONITOR PRINT OUT FOR FREQ VS. C.T. ORDERED.
--- NOTE | 2017-08-28 12:45 | NUR ---
PROPOFOL 50 MG IV GIVEN. PROPOFOL GTT HUNG, WILL TITRATE ACCORDINGLY.
--- NOTE | 2017-08-28 13:05 | NUR ---
TO CT VIA BED, ACCOMP BY RN X2, RT, BOOKKEEPING TEACHER.
--- NOTE | 2017-08-28 13:25 | NUR ---
SPOKE WITH A FRIEND OF THE FAMILY IN ROOM. HE STATES PATIENTS DAUGHTER IS ON HER WAY HERE FROM [place]. [facility] PATIENT LIVES ALONE IN [place]. [facility] AFTER LAST HOSPITALIZATION IN MAY THAT PATIENT NOW HAS A CANE AND A LIFT CHAIR AT HOME. [facility] PATIENT STILL HAS A CAR, BUT HASN'T BEEN DRIVING LATELY. HAS A NEIGHBOR WHO TAKES HIM TO THE STORE AND APPOINTMENTS. [facility] PATIENT HAS 3 STEPS INTO HOUSE WITH RAIL AND NO STAIRS TO LIVING AREAS IN HOUSE. PATIENT IS NOW INTUBATED AND NOT ABLE TO ANSWER QUESTIONS ON OWN. DR GUTIERREZ HAS SPOKEN TO DAUGHTER BY PHONE.
--- NOTE | 2017-08-28 13:48 | NUR ---
FRIEND SITTING AT BEDSIDE. DIPRAVAN GTT AT 2.5 MCG/KG/MIN. LEVOPHED GTT AT 15 MCG/MIN. REMAINS ON VENT AT 60% FIO2,PIP-22,VT-450,CMV-18,PEEP-5. FLORES PATENT W/MINIMAL OUTPUT NOTED. RECIEVED LASIX 40 MG AT 1320.
--- NOTE | 2017-08-28 13:50 | NUR ---
LACTIC ACID = 4.8. DR. GUTIERREZ AWARE. NO FUTHER ORDERS. PICC LINE PENDING.
--- NOTE | 2017-08-28 15:30 | NUR ---
PICC LINE PLACED BY Gemma PATEL RN. CHEST XRAY DONE. IS REPONDING TO FEW QUESTIONS BY NOD OF HEAD. HOB IS NOW ELEVATED TO 45 DEGREES. LEVOPHED GTT AT 15 MCG/KG/MIN. PROPOFOL GTT AT 2.5 MCG/MIN. IS CALM AT THIS TIME.
--- NOTE | 2017-08-28 15:36 | NUR ---
AWAITING CHEST XRAY RESULTS FOR PICC PLACEMENT.
--- NOTE | 2017-08-28 16:08 | NUR ---
ABG RESULTS ON 60% FIO2 VIA VENT. PH-7.35,PCO2-53.6, PO2-100.
--- NOTE | 2017-08-28 16:44 | NUR ---
HOB ELEVATED. CALM. PIP-22.
--- NOTE | 2017-08-28 18:57 | NUR ---
REPOSITIONED TO RIGHT SIDE. HAS FEW TREMORS AT TIMES. NO CHANGES IN VENT SETTINGS. OG PATENT, FLORES CATH PATENT, WRISIT RESTRAINTS ON BILAT,SCD'S ON, SL X 3 PATENT, PICC LINE PATENT WITH LEVOPHED INFUSING AT 15 MCG/MIN, PROPOFOL AT 2.5 MCG/KG/MIN. FRIENDS ARE AT BEDISDE.
--- NOTE | 2017-08-28 20:40 | NUR ---
AT 1999 BEGAN CARES OF PT, PT AT FIRST DIFFICULT TO AROUSE, CARES GIVEN PT MORE ALERT AND IRRITABLE. INDICATED BY HITTING AT SIDE RAIL AND NODDING YES TO QUESTIONS. FEELS NEED TO VOID AND DOES NOT ACCEPT EXPLANATION OF CATHETER. INDICATED WANTED ETT OUT AND CONT TO DO SO AFTER EXPLANATION ALSO GRABBING AT STAFFS CLOTHING. PROPOFOL INC TO 5MGC/KG/MIN. REPOSITIONED TO BACK AND ROM DONE. ORAL CARE DONE PER RT. SCROTUM VERY EDEMATOUS, VERY DIFFICULT TO DO CATH CARE. HEEL PROTECTORS IN PLACE.
--- NOTE | 2017-08-28 22:11 | NUR ---
REPOSITIONED TO L SIDE. KEEPS EYES CLOSED BUT WILL MOVE HANDS WHEN AWAKENED.
--- NOTE | 2017-08-28 22:12 | NUR ---
LEVOPHED GTT HAS REMAINED AT 15MCG/KG/MIN.
--- NOTE | 2017-08-28 23:08 | NUR ---
PT NOTED TO BE TRYING TO SIT UP, RR UP TO 30, RT CALLED PT INDICATED HE FELT LIKE HE WASN'T GETTING ENOUGH AIR. PROPFOL INC TO 15MCG/MIN FOR ABOUT 10MIN THEN BACK TO 10. DR GUTIERREZ CALLED AND ORDERS RECEIVED. PT GIVEN 2MG MORPHINE IV FOR COMFORT. PT NOW QUIET AND MORE RESTFUL.
--- NOTE | 2017-08-29 00:29 | NUR ---
PT REPOSITIONED, AWAKE WITH CARES BEING DONE. WILL OCC TRY TO SIT FORWARD. PT'S FRIEND INFORMED STAFF THAT PT USUALLY HAS HEAD TIPPED FORWARD BECAUSE OF PREVIOUS NECK FUSIONS. HEAD TIPPED FORWARD WITH PILLOWS AND BLANKET. PT AFIRMED THAT FELT BETTER. PT IS MORE COOPERATIVE AND CALM. CONT LEVOPHED AT 15MCG/MIN AND PROPOFOL AND 10MCG/KG/MIN. ORAL CARE DONE.
--- NOTE | 2017-08-29 01:51 | NUR ---
PT QUIET, REPOSITIONED TO R SIDE FROM BACK. BP 76/52, PROPOFOL DEC TO 7.5MCG/KG/MIN.
--- NOTE | 2017-08-29 02:59 | NUR ---
RESTLESS, COUGHING. SUCTIONED ETT FOR SMALL AMT BERMUDEZ SPUTUM. GIVEN 2MG MORPHINE IV FOR DISCOMFORT. HR UP TO 150'S WITH SUCTIONING.
--- NOTE | 2017-08-29 03:14 | NUR ---
PT REPOSITIONED AND SUCTIONED AGAIN. NOW QUIET.
--- NOTE | 2017-08-29 04:09 | NUR ---
HAS BEEN RESTFUL SINCE REPOSITIONED. HR 110-120. RT IN TO DO ORAL CARE.
--- NOTE | 2017-08-29 06:13 | NUR ---
PROPOFOL PAUSED FOR LAB DRAW FROM PICC. PT BECAME AGITATED, SITTING UP AND TRYING TO REACH ETT. PROPOFOL INC TO 15MCG/KG/MIN. PT QUIETED AND THEN REPOSITIONED. CONT TO HAVE SOFT RESTRAINTS IN PLACE.
--- NOTE | 2017-08-29 07:10 | NUR ---
CURRENTLY RESTFUL, ZEENAT PCXR WELL.
--- NOTE | 2017-08-29 08:00 | NUR ---
ASSESSMENT DONE. PATIENT IS CALM AT THIS TIME.
--- NOTE | 2017-08-29 09:04 | NUR ---
PATIENT RESTING IN BED, FAMILY AND RN IN ROOM. NO OTHER NEEDS AT THIS TIME.
--- NOTE | 2017-08-29 09:15 | NUR ---
OT HERE TO WRAP RIGHT LEG, TAPED LEFT LEG AND LOWER ABD. TOLERATED WELL. REMAINS ON DIPRAVAN AT 15 MCG/KG/MIN. LEVOPHED AT 15 MCG/MIN. PICC LINE PATENT.
--- NOTE | 2017-08-29 09:30 | NUR ---
DR. GUTIERREZ HERE TO SEE PATIENT. NO FUTHER ORDERS AT THIS TIME.
--- NOTE | 2017-08-29 10:22 | NUR ---
AM CARES COMPLETE. TOLERATED WELL. POSITIONED TO RIGHT SIDE. FRIEND REMAINS IN ROOM.
--- NOTE | 2017-08-29 11:00 | NUR ---
FOOT, TOES TO RIGHT LEG WARM TO TOUCH. WRAP TO RIGHT LEG REMAINS INTACT.
--- NOTE | 2017-08-29 12:00 | NUR ---
ASSESSMENT UNCHANGED. DID GRASP HAND UPON REQUEST. WILL ATTEMPT TO OPEN EYES AT TIMES. ORAL CARE GIVEN.
--- NOTE | 2017-08-29 20:00 | NUR ---
PATIENT RESTING IN BED IN BED, RASS SCORE OF -3. RR 18, O2 SATURATION IS 100% ON 40% FIO2, PIP OF 22, ETCO2 IS 38. IVF REMAIN AT 30 ML/HR, PROPOFOL GTT AT 15 MCG/KG/MIN, NOREPINEPHRINE REMAINS AT 13 MCG/MIN. RESTRAINTS IN TACT, PATIENT SUCTIONED WITH INLINE SUCTION. TIDAL VOLUME IS 458, PEEP REMAINS AT 5. ASSESSMENT DONE. PATIENT DENIES PAIN AT THIS TIME, DENIES DISCOMFORT. NO RESPIRATORY DISTRESS NOTED.
--- NOTE | 2017-08-29 21:00 | NUR ---
PATIENT RESTING IN BED, RASS SCORE -3. RR IS 18, SPO2 100% AT 4O% FIO2 ON VENT, PIP OF 22, ETCO2 OF 41, TIDAL VOLUME 477, PEEP OF 5. IVF REMAINS AT 30, PROPOFOL GTT 15 MCG/KG/MIN, LEVOPHED GTT AT 13 MCG/MIN. RESTRAINTS INTACT, SUCTION DONE WITH INLINE SUCTION, ORAL CARE DONE. PATIENT REPORTS DISCOMFORT IN NECK, WITH REPOSITIONING, PATIENT REPORTS NO MORE DISCOMFORT, DENIES PAIN AT THIS TIME. DENIES NEEDS.
--- NOTE | 2017-08-29 22:00 | NUR ---
RASS SCORE OF -3, SPO2 100% ON 40% FIO2 WITH RR 18, PIP 23, ETCO2 41, TIDAL VOLUME 481, PEEP OF 5. IVF AT 30 ML/HR, PROPOFOL 15 MCG/KG/MIN, LEVOPHED GTT 13 MCG/MIN. RESTRAINTS IN TACT, SUCTION DONE VIA INLINE SUCTION. PATIENT DENIES PAIN AT THIS TIME, DENIES NEEDS. CMS INTACT, FOLLOWS COMMANDS APPROPRIATELY.
--- NOTE | 2017-08-29 23:00 | NUR ---
RASS SCORE -3, O2 SATURATION 100% WITH RR 18, FIO2 OF 40%, PIP 23, ETCO2 41, TIDAL VOLUME 480, PEEP OF 5. RESTRAINTS INTACT, CMS INTACT, PATIENT ABLE TO RESPOND TO COMMANDS. REPOSITIONED TO PREVENT SKIN BREAKDOWN AND FOR COMFORT. PATIENT DENIES PAIN, DENIES NEEDS AT THIS TIME.
--- NOTE | 2017-08-29 23:05 | NUR ---
LEVOPHED GTT TITRATED TO 12 MCG/MIN, PATIENT'S MAP HAS REMAINED GREATER THAN 65. LAST BLOOD PRESSURE OF 104/55 WITH MAP OF 66 NOTED.
--- NOTE | 2017-08-29 23:30 | NUR ---
LAST BP OF 100/59 WITH MAP OF 70 NOTED, LEVOPHED GTT TITRATED TO 11 MCG/MIN.
--- NOTE | 2017-08-30 | NUR ---
RASS SCORE OF -3, O2 SATURATION 100% ON 40% FIO2, RR 18. POP 23, ETCO2 41. RESTRAINTS INTACT, CMS INTACT, PATIENT RESPONDS TO COMMANDS APPROPRIATELY. SUCTION DONE WITH INLINE SUCTION. PATIENT DENIES PAIN, NO NEEDS AT THIS TIME. TIDAL VOLUME 466, PEEP 5.
--- NOTE | 2017-08-30 01:00 | NUR ---
RASS SCORE -3. RR REMAINS 18, VENTILATOR SETTINGS UNCHANGED, PIP 23, ETCO2 39, TIDAL VOLUME 453. RESTRAINTS INTACT, CONTINUES TO FOLLOW COMMANDS. REPOSITIONED FOR COMFORT AND PREVENTION OF SKIN BREAKDOWN. PATIENT DENIES PAIN, NO NEEDS AT THIS TIME.
--- NOTE | 2017-08-30 01:55 | NUR ---
PATIENT IN RESP. DISTRESS, RR IS GREATER THAN 28, INCREASED TIDAL VOLUME, CRACKLES HEARD IN RLL OF LUNGS, COURASE LUNG SOUNDS HEARD IN UPPER LOBES BILATERALLY. URINE OUTPUT REMAINS QS, HOWEVER SIGNIFICANTLY DECLINED SINCE BEGINNING OF SHIFT. PATIENT SUCTIONED BY RN WITH INLINE SUCTION, THICK, BELCHER COLORED SPUTUM NOTED. RT TO ROOM TO ASSESS PATIENT, PATIENT SUCTIONED BY RT, MORE BELCHER SPUTUM RETRIEVED. PATIENT REPORTS THAT BREATHING NO LONGER DISTRESSFUL. MD NOTIFIED OF PATIENT'S CURRENT CONDITION, X1 DOSE OF 20 MG IV LASIX RECEIVED. PATIENT NOW RESTING COMFORTABLY, RASS SCORE OF -3, RR RETURNED TO 18, O2 SATURATION 100% ON 40% FIO2, PIP 22, TIDAL VOLUME 479, PEEP REMAINS 5, ETCO2 41. PATIENT DENIES PAIN AND DENIES FURTHER NEEDS. REPORTS FEELING COMFORTABLE.
--- NOTE | 2017-08-30 03:00 | NUR ---
RASS SCORE -3, O2 SATURATION IS 100% WITH RR OF 18, FIO2 35%, PEEP 5, TIDAL VOLUME 478. PIP OF 22, ETCO2 41. RESTRAINTS INTACT, CMS INTACT, PATIENT RESPONDS APPROPRIATELY TO COMMANDS, AIRWAY SUCTIONED. REPOSITIONED. PATIENT DENIES PAIN, DENIES NEEDS AT THIS TIME.
--- NOTE | 2017-08-30 04:00 | NUR ---
RASS SCORE -3, O2 SATURATION 100% WITH RR OF 18, PIP 22, ETCO2 41, FIO2 30%, PEEP 5, TIDAL VOLUME 463. RESTRAINTS INTACT, RESPONDS APPROPRIATELY TO COMMANDS. DENIES PAIN, DENIES NEEDS AT THIS TIME.
--- NOTE | 2017-08-30 04:20 | NUR ---
PATIENT RESTING WITH FLACC SCORE OF -3, NEW ADVENTITIOUS LUNG SOUNDS HEARD IN RIGHT LUNG RAMIREZ THROUGHOUT, NON-SPECIFIC SOUNDS HEARD. PATIENT DENIES DISTRESS, RR IS 18, TIDAL VOLUME 469, NO TACTILE FREMITUS. IMAGING CALLED TO HAVE XCR DONE, RADIOLOGY REPORT PENDING. PATIENT RESTING COMFORTABLY IN BED, DENIES NEEDS.
--- NOTE | 2017-08-30 05:00 | NUR ---
RASS SCORE -3. O2 SATURATION 100% WITH RR OF 18, PIP 21, ETCO2 41, FIO2 30%, PEEP 5, TIDAL VOLUME 467. RESTRAINTS INTACT, CMS INTACT, RESPONDS TO VERBAL COMMANDS APPROPRIATELY. REPOSITIONED. INLINE SUCTION DONE, PATIENT DENIES PAIN, NO NEEDS.
--- NOTE | 2017-08-30 05:53 | NUR ---
PATIENT REPORTS PAIN, FLACC SCORE OF 4, PRN MORPHINE GIVEN. PATIENT NOW RESTING IN BED, NO FURTHER NEEDS.
--- NOTE | 2017-08-30 06:00 | NUR ---
RASS SCORE -3, O2 SATURATION 100% WITH RR OF 18, PIP 21, ETCO2 40, FIO2 30%, PEEP 5, TIDAL VOLUME 474. RESTINTS INTACT, CMS INTACT, RESPONDS APPROPRIATELY TO VERBAL COMMANDS. DENIES PAIN, NO NEEDS.
--- NOTE | 2017-08-30 06:10 | NUR ---
RADIOLOGIST CALLED RN TO NOTIFY THAT PATIENT HAS "SMALL PNEUMO ON THE LEFT SIDE. NO CHANGES ON THE RIGHT."
--- NOTE | 2017-08-30 06:12 | NUR ---
NOTIFIED DR. GUTIERREZ REGARDING NEW REPORT FROM RADIOLOGY WITH PATIENT HAVING SMALL PNEUMO ON LEFT SIDE. NO NEW ORDERS AT THIS TIME.
--- NOTE | 2017-08-30 06:41 | NUR ---
oral care provided at this time. No facial grimmace, pt appears to be resting comfortbaly. Family at bedside. No needs voiced a tthis time.
--- NOTE | 2017-08-30 07:30 | NUR ---
IMAGING AT BEDSIDE TO OBTAIN CXR. DR. ANDERSON IN ROOM TO ASSESS PT, REVIEW IMAGES, AND UPDATE PLAN OF CARE.
--- NOTE | 2017-08-30 08:00 | NUR ---
REPORT RC'D FROM ALIGNER TYPEWRITER NURSE. PT RESTING COMFORTABLY IN BED, POSITIONED 30-45 DEGREES, HEEL PROTECTORS ON, SCD IN PLACE, PT POSITIONED ON RIGHT SIDE. CURRENT RASS SCORE -3. TUBE SIZE 8, TUBE MEASURED 22 AT TEETH, FIO2 30%, VT .480, CMV 18, PEEP 5, R/R 18, SPO2 100%, PIP 22, AND ETCO2 40. CURRENT VITAL SIGNS, BP 119/62, MAP 72, HR 110, TEMP 98.6 ORALLY. RT IS ROOM PERFORMING ORAL CARE AND ASSESSING VENT. CURRENT IVF, PROPOFOL INFUSING AT 15 MCG/KG/MIN, PIPERACILLIN INFUSING AT 15 ML/HR, AND LEVOPHED INFUSING AT 11 MCG/MIN. PICC LINE RIGHT ARM AND RFA IV ALL WNL AND DRESSINGS INTACT. FLORES CARE DONE AT THIS TIME, SCROTUM EDEMATUS, OUTPUT YELLOW WITH SEDIMENT, HOURLY OUTPUT 104 ML. PT'S DAUGHTER AT BEDSIDE AND UPDATED ON PLAN OF CARE, VERBALIZED UNDERSTANDING AND AGREEABLE, ALL QUESTIONS ANSWERED AT THIS TIME. WILL CONTINUE TO MONITOR.
--- NOTE | 2017-08-30 08:15 | NUR ---
LEVOPHED TITRATED DOWN FROM 11 MCG/MIN TO 9 MCG/MIN. WILL CONTINUE TO MONITOR VITAL SIGNS.
--- NOTE | 2017-08-30 09:25 | NUR ---
OG TUBE FLUSHED WITH 40ML TAP WATER. OG LINE IS PATENT.
--- NOTE | 2017-08-30 09:59 | NUR ---
IMAGING IN ROOM TO OBTAIN CXR
--- NOTE | 2017-08-30 10:15 | NUR ---
BED BATH COMPLETED, NEW GOWN, LINEN CHANGE, SKIN CARE, FLORES CARE, ANAHI CARE, EYE CARE, AND REPOSITIONING DONE AT THIS TIME, PT TOLERATED WELL. TUBE PLACEMENT ASSESSED AND WNL. LAST BP 101/63, MAP 72, HR 100, R/R 18/18, SPO2 99%, PIP 22, ETCO2 40. CURRENT VENT SETTINGS, FIO2 30, VT .480, CMV 18, PEEP 5. WILL CONTINUE TO MONITOR.
--- NOTE | 2017-08-30 11:12 | NUR ---
LAST BP 104/60, MAP 71, HR 102, LEVOPHED TITRATED DOWN FROM 9 MCG/MIN TO 7 MCG/MIN. CARE MEETING TO TAKE PLACE AT 1200, SEDATION TO BE LIGHTENED, PROPOFOL TITRATED DOWN FROM 15 MCG/KG/MIN TO 12 MCG/KG/MIN. WILL CONTINUE TO MONITOR.
--- NOTE | 2017-08-30 11:25 | NUR ---
PROPOFOL TITRATED DOWN FROM 12 MCG/KG/MIN TO 10 MCG/KG/MIN.
--- NOTE | 2017-08-30 11:42 | NUR ---
PROPOFOL TITRATED DOWN FROM 10 MCG/KG/MIN TO 5 MCG/KG/MIN.
--- NOTE | 2017-08-30 11:45 | NUR ---
PROPOFOL PLACED IN STANDBY MODE AT THIS TIME. CURRENT RASS +1.
--- NOTE | 2017-08-30 11:52 | NUR ---
PT NOTED TO BE AGGITATED AND RESTLESS. RESTRAINTS REASSESSED AT THIS TIME AND WNL. CURRENT RASS +2. PT REASSURED AND DAUGHTER MELLY AT BEDSIDE, PT CALMED AND LESS AGGITATED. PT COMMUNICATING VIA NODS AND HAND SQUEEZ. PT REORIENTED TO SURROUNDINGS, EVENTS, AND TIME. PT INFORMED OF PLAN TO LIGHTEN SEDATION FOR UPCOMING CARE CONFERENCE. WILL CONTINUE TO MONITOR PT. WILL AWAIT CARE CONFERENCE.
--- NOTE | 2017-08-30 12:00 | NUR ---
DR. GUTIERREZ, CASE MANAGEMENT, RT, AND PT'S DAUGHTER AT BEDSIDE FOR CARE CONFERENCE.
--- NOTE | 2017-08-30 12:10 | NUR ---
PROPOFOL RESTARTED AT 10 MCG/KG/MIN AT THIS TIME, CURRENT RASS +2. WILL CONTINUE TO MONITOR.
--- NOTE | 2017-08-30 13:00 | NUR ---
CARE CONFERENCE MET IN ROOM. PRESENT ARE PATIENT, PATIENTS DAUGHTER MELLY, MYSELF, ALE PALACIOS RN, [facility]. SEDATION HAD BEEN LIFTED AND PATIENT WAS AWAKE AND ABLE TO COMMUNICATE WITH UNDERSTANDING. DR GUTIERREZ DISCUSSED PATIENTS DIAGNOSIS, CURRENT ISSUES INCLUDING PNEUMOTHORAX. PATIENT INDICATED HE WANTS TO CONTINUE TREATMENT. PLAN WILL BE FOR CONTINUED MONITOR OF PNEUMO, VITAL SIGNS, RESPIRATORY CARE. DAILY WEANING WILL BEGIN WHEN PNEUMO RESOLVES. SURGEON CONSULT HAS BEEN DONE FOR CHEST TUBE PLACEMENT IF NEEDED.
--- NOTE | 2017-08-30 13:08 | NUR ---
MET WITH PATIENTS DAUGHTER, MELLY AFTER CARE CONFERENCE REGARDING DISCHARGE PLAN. PATIENT LIVES ALONE IN [place], DOES NOT OWN HIS HOME. 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 HE DOES NOT HAVE A FORMAL POA FILLED OUT. DAUGHTER STATES HER FATHER HAS HAD TROUBLE TAKING CARE OF HIMSELF SINCE HIS LAST HOSPITALIZATION IN MAY. HE HAS BEEN LOOSING WEIGHT. RECENTLY SHE AND HER SIBLINGS HAVE BEEN TALKING WITH HIM REGARDING POSSIBILY LIVING CLOSER TO ONE OF THEM. PATIENT HAS BEEN RESISTIVE AND WANTS TO REMAIN AT HIS HOME HERE. MELLY IS AWARE THAT PATIENT WILL LIKELY NEED REHAB/CORRECTION BEFORE HE CAN RETURN HOME. WE DISCUSSED IN-HOME CARE, ASSISTED LIVING POSSIBILITIES. AGREED THAT MORE WILL BE KNOWN HE RECOVERS.
--- NOTE | 2017-08-30 13:19 | NUR ---
PT REPOSITIONED TO RIGHT SIDE. RESTRAINTS REASSESSED AND WNL. PROPOFOL INFUSION TITRATED UP TO 15 MCG/KG/MIN.
--- NOTE | 2017-08-30 14:35 | NUR ---
PT NOTED TO BE AGGITATED, RESTLESS, AND ATTEMPING TO PULL AT ET TUBE. PT'S DAUGHTER AT BEDSIDE ATTEMPTING TO CALM PT. PT ASSESSED IF HE IS HAVING PAIN, PT NODS IN AGREEMENT. PROPOFOL TITRATED TO 15 MCG/KG/MIN. 1 MG MORPHINE TO BE GIVEN. RESTRAINTS ASSESSED AND REPOSITIONED. AGGITATION AND RESTLESSNESS IMPROVED WITH VERBAL REASSURANCE.
--- NOTE | 2017-08-30 15:00 | NUR ---
PT RESTING COMFORTABLY IN BED, CURRENT RASS SCORE -2. WILL CONTINUE TO MONITOR.
--- NOTE | 2017-08-30 17:20 | NUR ---
PER DR. VASQUEZ, TUBE FEEDING AT 10 ML/HR STARTED AT THIS TIME.
--- NOTE | 2017-08-30 18:31 | NUR ---
PT RESTING COMFORTABLY IN BED, HOB 30 ELEVATED DEGREES, SUPINE POSITIONING, RASS SCORE -3, AND NO ACUTE DISTRESS NOTED. DAUGHTER AND SON-IN-LAW AT BEDSIDE. PROPOFOL INFUSING AT 15 MCG/KG/MIN AND LEVOPHED INFUSING AT 7 MCG/MIN. CURRENT VENT SETTINGS, FIO2 30, VT .480, CMV 12, PEEP 5, R/R 24/15, PIP 18. LAST VITAL SIGNS, BP 98/51, MAP 63, HR 104, SPO2 99%, AND ETCO2 45. TUBE FEEDING INFUSING AT 10 ML/HR.
--- NOTE | 2017-08-30 20:00 | NUR ---
PATIENT RASS SCORE -3, CPOT OF 5 NOTED, PATIENT REPORTS DIFFICULTY BREATHING, 44 24 NOTED, O2 SATURATION 100% WITH 30% FIO2, PEEP 5, TIDAL VOLUME 428, PIP 21, ETCO2 42. INLINE SUCTIONING DONE, NO SPUTUM SUCTIONED. PATIENT REPOSITIONED, ORAL SUCTIONING DONE WITH SMALL AMOUNT OF THIN SPUTUM RETRIEVED. EDUCATED PATIENT ABOUT VENTILATOR SETTING CHANGES THAT WERE DONE DURING PREVIOUS SHIFT. PATIENT NODS WITH UNDERSTANDING. LEVOPHED GTT REMAINS AT 7 MCG/MIN, PROPOFOL GTT 15 MCG/KG/MIN.
--- NOTE | 2017-08-30 20:25 | NUR ---
DUE TO PATIENT'S CONTINUED RESTLESSNESS AND DISCOMFORT, PROPOFOL GTT INCREASED TO 20 MCG/KG/MIN. EDUCATED PATIENT ABOUT MEDICATION TITRATION, PATIENT NODS WITH UNDERSTANDING. PATIENT NOW APPEARS MORE RELAXED, PATIENT DENIES DISCOMFORT, DENIES PAIN.
--- NOTE | 2017-08-30 21:00 | NUR ---
RASS SCORE -3, O2 SATURATION 98% WITH RR OF 19, PIP 21, ETCO2 44, FIO2 30%, PEEP 5, TIDAL VOLUME 468. PATIENT DENIES DISCOMFORT, DENIES PAIN. RESTRAINTS INTACT. PROPFOL GTT REMAINS AT 20 MCG/KG/MIN, LEVOPHED AT 7 MCG/MIN.
--- NOTE | 2017-08-30 22:00 | NUR ---
RASS SCORE -3, O2 SATURATION 98% WITH RR OF 16, PIP 21, ETCO2 44, FIO2 30%, PEEP 5, TIDAL VOLUME 489. PATIENT DENIES DISCOMFORT OR PAIN. REPOSITIONED. PROPOFOL GTT DECREASED TO 15 MCG/KG/MIN DUE TO DECREASED MOTOR RESPONSE TO VERBAL COMMANDS, MOTOR FUNCTION REMAINS INTACT. LEVOPHED GTT REMAINS AT 8 MCG/MIN.
--- NOTE | 2017-08-30 22:00 | CONS ---
[facility] [address], [place] [address] Signed DATE OF CONSULTATION: 08/30/2017 CONSULTING PHYSICIAN: Kelly Anderson MD PROBLEM: Questionable left apical pneumothorax while on ventilator. HISTORY: This markedly debilitated 86-year-old white man is on a ventilator related to progressive respiratory failure. The patient was admitted on August 27, by Dr. Landeros with increasing shortness of breath and underlying diagnosis with congestive heart failure, atrial fibrillation with good ventricular response. He has very poor medical compliance and low ejection fraction. He presented to the hospital, and was managed and had progression of his congestive heart failure, ultimately requiring intubation and ventilatory support. The patient had a considerable amount of anasarca and is in a debilitated state to say the least. He appears to have a somewhat flexed fixed neck suggestive though not diagnostic of ankylosing spondylitis. I was called at approximately 06:[address] Landeros as regard to possible left-sided pneumothorax, anticipating urgent chest tube placement. The patient showed no evidence of increasing shortness of breath or respiratory distress particularly. As it turns out, the chest x-ray was performed at approximately 04:30 a.m. in the morning. Interpretation of the film by the tele-radiologist suggested a 1 cm apical pneumothorax on the left. The patient has no other issues. PHYSICAL EXAMINATION: GENERAL: Tall white man who appears somewhat obtunded. He has chronic neck flexion. Trachea is palpable, but difficult to access. CHEST: Shows breath sounds equal bilaterally on ventilatory support. HEART: Irregularly irregular. ABDOMEN: Ascites laden, it appears. EXTREMITIES: Legs are similarly edematous. DIAGNOSTIC DATA: Reviewed chest x-ray that had been done portably, which showed bilateral pleural effusions and an enlarged heart. A subsequent chest x-ray was recommended and performed, which showed no significant change. No pneumothorax was noted by the Electronically Signed By: KELLY ANDERSON MD 08/30/17 2200 PATIENT NAME: CHAVEZ ZENDEJAS CONSULTATION DATE OF : 30 REPORT #: [id number] PHYSICIAN: KELLY ANDERSON MD PCP: DILLON ANAYA MD REPORT IS CONFIDENTIAL AND NOT TO BE RELEASED WITHOUT AUTHORIZATION [facility] [address], [place] [address] Signed radiologist nor did I see one on my review of the study. ASSESSMENT AND PLAN: I am unconvinced that there is a pneumothorax, so it is certainly possible in this so it is extremely small and not associated with progression. In general terms, would recommend placement of a chest tube on the affected side if the pneumothorax was clearly present, particularly with positive-pressure ventilation on a ventilator as progression of the pneumothorax could be hazardous. On the other hand, if clinically normal and the chest x-ray did not definitively show pneumothorax to my opinion was that of a more recent radiologist interpretation. A subsequent x-ray later in the day perhaps 10-12 o'clock may be of benefit. Certainly, if there should be any respiratory distress, chest x-ray should be performed sooner. An angiocatheter is available at the bedside, unlikely event of a tension pneumothorax, and a chest tube set up has already been placed anticipating chest tube placement if necessary. Kelly Anderson MD JM/MODL /[id number] cc: Yary Landeros MD Copies: YARY LANDEROS MD ~ Electronically Signed By: KELLY ANDERSON MD 08/30/17 2200 PATIENT NAME: CHAVEZ ZENDEJAS CONSULTATION DATE OF : 30 REPORT #: [id number] PHYSICIAN: KELLY ANDERSON MD PCP: DILLON ANAYA MD REPORT IS CONFIDENTIAL AND NOT TO BE RELEASED WITHOUT AUTHORIZATION
--- NOTE | 2017-08-30 22:20 | NUR ---
PATIENT HAS COARSE LUNG SOUNDS THROUGHOUT ALL LUNG RAMIREZ, NO CHANGES REGARDING VENTILATOR SETTINGS/NUMBERS, PATIENT NOT IN DISTRESS. INLINE SUCTION DONE BY RT, THICK BELCHER SPUTUM RETIREVED, IMPROVED LUNG SOUNDS AFTER SUCTION.
--- NOTE | 2017-08-30 23:00 | NUR ---
PATIENT REPORTS DIFFICULTY BREATHING, 44 IS 24, O2 SATURATION IS 99% ON 30% FIO2, PEEP, TIDAL VOLUME 454, PIP 20, ETCO2 46. INLINE SUCTION DONE, MINOR IMPROVEMENT IN LUNG SOUNDS, CONTINUE TO BE COARSE THROUGHOUT ALL LUNG RAMIREZ. PATIENT REPORTS FEELING BETTER AFTER SUCTIONING. DENIES PAIN, NO FURTHER NEEDS. LEVOPHED GTT 8 MCG/MIN, PROPOFOL 15 MCG/KG/MIN.
--- NOTE | 2017-08-31 | NUR ---
RASS SCORE -3, RESPONDS APPROPRIATELY TO COMMANDS. O2 SATURATION IS 98% WITH RR OF 22, PIP 19, ETCO2 45, FIO2 30%, PEEP 5, TIDAL VOLUME 484. DENIES PAIN, DENIES DISCOMFORT. RESTRAINTS INTACT, RELEASED DURING REPOSITIONING PER PROTOCOL. ORAL CARE DONE, ORAL SUCTION DONE. PROPOFOL REMAINS AT 15 MCG/KG/MIN, LEVOPHED REMAINS AT 8 MCG/MIN.
--- NOTE | 2017-08-31 01:00 | NUR ---
O2 SATURATION 97%, RR 21, PIP 21, ETCO2 43, FIO2 30%, PEEP 5, TIDAL VOLUME 460. RESTING COMFORTABLY, NO SIGNS OF DISTRESS. PROPOFOL REMAINS 15 MCG/KIG/MIN, LEVOPHED GTT 8 MCG/MIN.
--- NOTE | 2017-08-31 02:00 | NUR ---
RASS -3, FOLLOWS VERBAL COMMANDS APPROPRIATELY. O2 SATURAITON IS 99% WITH RR OF 22, PIP 22, ETCO2 45, TIDAL VOLUME 480, FIO2 30%, PEEP 5. REPOSITIONED, PATIENT DENIES DISCOMFORT, NO FURTHER NEEDS. RESTRAINTS RELEASED PER PROTOCOL, NOW INTACT AGAIN. LEVOPHED GTT TITRATED TO 7 MCG/MIN DUE TO SATISFACTORY BP CONTROL WITH BP OF 101/64 WITH MAP OF 72.
--- NOTE | 2017-08-31 03:00 | NUR ---
O2 SATURATION 100% WITH RR OF 19, PIP 22, ETCO2 45, FIO2 30%, PEEP 5, TIDAL VOLUME 483. NO SIGNS OF DISTRESS. LEVOPHED GTT REMAINS AT 7 MCG/MIN, PROPOFOL 15 MCG/KG/MIN.
--- NOTE | 2017-08-31 03:20 | NUR ---
LEVOPHED GTT TITRATED TO 6 MCG/MIN WITH BP OF 108/66 MAP OF 74 NOTED.
--- NOTE | 2017-08-31 04:00 | NUR ---
RASS SCORE -3, RESPONDS TO VERBAL COMMANDS APPROPRIATELY, RESTRAINTS RELEASED PER PROTOCOL, NOW INTACT AGAIN. REPOSITIONED, DENIES DISCOMFORT. O2 SATURATION IS 100% WITH RR OF 20, PIP 20, ETCO2 46, TIDAL VOLUME 508, FIO2 30%, PEEP 5. ROUTINE ORAL CARE DONE. LEVOPHED GTT AT 6 MCG/MIN, PROPOFOL GTT AT 15 MCG/KG/MIN.
--- NOTE | 2017-08-31 05:00 | NUR ---
O2 SATURATION 100% WITH RR OF 19, PIP 23, ETCO2 45, TIDAL VOLUME 476, FIO2 30%, PEEP 5. APPEARS COMFORTABLE, NO APPARENT DISTRESS. LEVOPHED GTT 6 MCG/MIN, PROPOFOL 15 MCG/KG/MIN.
--- NOTE | 2017-08-31 06:00 | NUR ---
RASS SCORE -3, PATIENT REPORTS DIFFICULTY BREATHING, APPEARS TO BE FIGHTING VENTILATOR, LUNG SOUNDS COARSE THROUGHOUT ALL RAMIREZ, INLINE SUCTION DONE, LUNG SOUNDS IMPROVED, REPOSITIONED PATIENT. PATIENT REPORTS BREATHING IS EASIER. O2 SATURAITON 100% WITH RR OF 15, PIP 20, ETCO2 47, FIO2 30%, PEEP 5, TIDAL VOLUME 481. ROUTINE RESTRAINT RELEASE, NOW INTACT AGAIN. DENIES PAIN.
--- NOTE | 2017-08-31 07:07 | NUR ---
BP OF 80/62 NOTED WITH MANUAL PRESSURE, INCREASED LEVOPHED GTT TO 8 MCG/MIN.
--- NOTE | 2017-08-31 07:19 | NUR ---
BP NOW 108/78 WITH MAP 84 WITH LEVOPHED GTT INCREASED TO 8 MCG/MIN. TITRATED LEVOPHED GTT TO 6 MCG/MIN.
--- NOTE | 2017-08-31 08:00 | NUR ---
REPORT RC'D FROM CAR SHAKEOUT OPERATOR. PT RESTING COMFORTABLY IN BED, HOB ELEVATED 30 DEGREES, NO ACUTE DISTRESS NOTED, CURRENT RASS SCORE -3, CPOT SCORE 0. PROPOFOL INFUSING AT 15 MCG/KG/MIN, LEVOPHED INFUSING AT 6 MCG/MIN, CONTINUOUS TUBE FEEDING INFUSING AT 10 ML/HR, WILL CONTINUE TO MONITOR INFUSIONS. VITALS, BP 93/60, MAP 68, HR 95, SPO2 99%, TEMP 97.8 F, ETCO2 46. PT REMAINS ON VENT, CURRENT VENT SEETINGS, FIO2 30, CMV 12, VT .480, PEEP 5, R/R 21/12, PIP 22. PT REPOSITIONED TO LEFT SIDE, LEGS SLIGHTLY ELEVATED, WARM BLANKET PROVIDED, WILL CONTINUE TO MONITOR POSITIONING AND TURN Q2H. FLORES CATH IN PLACE, WNL, OUTPUT QS AT THIS TIME. RESTRAINTS ASSESSED FOR PT SAFETY AND COMFORT.
--- NOTE | 2017-08-31 08:49 | NUR ---
DR. VASQUEZ AT BEDSIDE TO ASSESS PT AND UPDATE PLAN OF CARE.
--- NOTE | 2017-08-31 09:00 | NUR ---
PER DR. VASQUEZ, PROPOFOL TO BE TITRATED DOWN TO OBTAIN RASS SCORE OF 0 TO -1, AND CONTINUOUS TUBE FEEDING RATE INCREASED TO 20 ML/HR. PROPOFOL TITRATED FROM 15 MCG/KG/MIN DOWN TO 13 MCG/KG/MIN AT THIS TIME. RESTRAINTS REASSESSED FOR PT SAFETY AND COMFORT, WNL. TUBE FEEDING TITRATED FROM 10 ML/HR TO 20 ML/HR. WILL CONTINUE TO MONITOR SEDATION LEVEL AND TITRATE NEEDED.
--- NOTE | 2017-08-31 09:30 | NUR ---
RASS SCORE REMAINS -3 AFTER TITRATING PROPOFOL. PROPOFOL TITRATED DOWN FROM 13 MCG/KG/MIN TO 11 MCG/KG/MIN. WILL CONTINUE TO MONITOR AND ASSESS RASS SCORE.
--- NOTE | 2017-08-31 10:00 | NUR ---
PROPOFOL TITRATED DOWN TO 9 MCG/KG/MIN, CURRENT RASS SCORE -2. WILL CONTINUE TO MONITOR.
--- NOTE | 2017-08-31 10:30 | NUR ---
LEVOPHED TITRATED DOWN TO 4 MCG/MIN AT THIS TIME.
--- NOTE | 2017-08-31 11:15 | NUR ---
RT IN ROOM TO BEGIN CPAP TRIAL. CURRENT RASS SCORE -1. PROPOFOL CONTINUES AT 9 MCG/KG/MIN.
--- NOTE | 2017-08-31 11:20 | NUR ---
LEVOPHED DC'D AT THIS TIME. PHENYLEPHRINE INFUSING AT 40 MCG/MIN. WILL CONTINUE TO MONITOR.
--- NOTE | 2017-08-31 11:59 | NUR ---
PATIENT IS STILL SEDATED AND MILDLY AGITATED PER NSG. HIS CURRENT NURSE REPORTS BEING COMFORTABLE WITH PROM COMPLETED THROUGHOUT THE DAY. RECOMMEND HOLDING EVALUATION UNTIL PATIENT IS ABLE TO ASSIST WITH EVALUATION UNLESS NEW CONCERNS ARISE.
--- NOTE | 2017-08-31 12:00 | NUR ---
PT REMAINS ON CPAP 5/5, FIO2 30, RR 16, SPO2 100%, PIP 12, ETCO2 49. PROPOFOL INFUSING AT 9 MCG/KG/MIN, RASS SCORE -1. WILL CONTINUE TO MONITOR.
--- NOTE | 2017-08-31 13:00 | NUR ---
CPAP TRIAL COMPETE AT THIS TIME, PT TOLERATED WELL. VENT SETTINGS, FIO2 30, VT .480, CMV 12, PEEP 5. LAST VITAL SIGNS, BP 103/60, MAP 72, HR 109, SPO2 97%. PROPOFOL INFUSING AT 9 MCG/KG/MIN, BUMETANIDE INFUSING AT 2 ML/HR, NS IFUSING AT 10 ML/HR, PHENLEPHRINE INFUSING AT 40 MCG/MIN, AND CONTINUOUS FEED AT 20 ML/HR.
--- NOTE | 2017-08-31 14:14 | NUR ---
PT NOTED TO HAVE INCREASED AGGITATION AND ATTEMPTING TO PULL AT TUBE. CURRENT RASS +2, PROPOFOL TITRATED UP TO 11 MCG/KG/MIN. WILL CONTINUE TO MONITOR AND REASSESS RASS SCORE.
--- NOTE | 2017-08-31 15:00 | NUR ---
PHENYLEPHRINE TITRATED TO 50 MCG/MIN AT THIS TIME.
--- NOTE | 2017-08-31 15:10 | NUR ---
PHENYLEPHRINE TITRATED TO 60 MCG/MIN AT THIS TIME FOR BP 79/60. WILL CONTINUE TO MONITOR.
--- NOTE | 2017-08-31 15:20 | NUR ---
PHENYLEPHRINE REMAINS AT 60 MCG/MIN, BP IMPROVING, LAST BP 93/58, MAP 66, HR 104. WILL CONTINUE TO MONITOR.
--- NOTE | 2017-08-31 16:00 | NUR ---
SPOKE AT LENGTH WITH PATIENTS DAUGHTER AND SON IN LAW. QUESTIONS ANSWERED. DISCUSSED OPTIONS AT DISCHARGE. THEY ARE CONCERNED REGARDING FINANCES. DISCUSSED THAT REHAB WILL MOST LIKELY BE NEEDED BEFORE DECISIONS ON LIVING SITUATION FOR JAIL. THEY WOULD LIKE PATIENT TO MOVE CLOSER TO FAMILY, BUT REALIZE HE MAY NOT CHOOSE THAT. WE DISCUSSED THAT [employer] CAN LOOK TO SEE IF HE WOULD QUALIFY FOR HELP THROUGH MEDICAID, BUT THAT THIS IS BASED ON PATIENTS FINANCES. THEY ARE GOING TO TRY TO PULL TOGETHER HIS PAPERWORK TO START WORKING ON THIS.
--- NOTE | 2017-08-31 16:00 | NUR ---
PT RESTING COMFORTABLY IN BED, RASS SCORE -1, NO ACUTE DISTRESS NOTED. RESTRAINTS ASSESSED FOR PT SAFETY AND COMFORT. VENT SETTING, FIO2 30, CMV 12, PEEP 5, VT .480, R/R 36/12. LAST VITALS, BP 118/71, MAP 84, HR 115, SPO2 97%. ETCO2 NOTED TO BE SLIGHTLY ELEVATED AT 48, WILL REASSESS. PHENYLEPHRINE INFUSING AT 60 MCG/MIN, PROPOFOL AT 11 MCG/KG/MIN, BUMETANIDE 2 ML/HR, NS AT 10 ML/HR, CONINUOUS FEED AT 20 ML/HR.
--- NOTE | 2017-08-31 17:45 | NUR ---
ETCO2 REMAINS ELEVATED AND NOTED BE 52. P/C TO DR. VASQUEZ REGARDING ETCO2 AND PREVIOUS HYPOTENSION WITH INCREASE OF PHENYLEPHRINE TO 60 MCG/MIN. PER PROVIDER, LABS TO BE ORDERED. WILL CONTINUE TO MONITOR.
--- NOTE | 2017-08-31 18:43 | NUR ---
PT HAS REMAINED WITHIN RASS GOAL SCORE OF 0 TO -1, PROPOFOL INFUSING AT 11 MCG/KG/MIN. LEVOPHED DC'D AND PHENYLEPHRINE STARTED AT 40 MCG/MIN, PHENYLEPHRINE TITRATED UP TO 60 MCG/MIN DUE TO TRENDING HYPOTENSION, PT BP HAS REMAINED WNL. LASIX DC'D AND BUMETANIDE INFUSING AT 2 ML/HR, HOURLY OUTPUT QS. CONTINUOUS FEEDING INFUSING AT 20 ML/HR. VBG ORDERED AND OBTAINED FOR ETCO2 TRANDING FROM 50-54, WILL AWAIT RESULTS. RESTRAINTS ASSESSED FOR PT'S COMFORT AND SAFETY. WILL CONTINUE TO MONITOR.
--- NOTE | 2017-08-31 20:16 | NUR ---
PT ON VENTILATOR AT RATE OF 12, BREATHING AT RATE OF 26 BREATHS PER MINUTE. PT RASS 0 TO 1+, PULLING ARMS AGAINST RESTRAINTS, MOVING ALL EXTREMETIES SPONTANEOUSLY. BUMEX GTT AT 2 ML/HR. PHENYLEPHRINE AT 60 MCG/MIN; PROPOFOL AT 11 MCG/KG/MIN. PIP 20, ETCO2 43, FIO2 30%, VT 480, PEEP 5.
--- NOTE | 2017-08-31 20:39 | NUR ---
OG PLACEMENT VERIFIED WITH AIR BOLUS BELOW DIAPHRAGM. RESIDUAL TUBE FEEDING 5 ML. ORAL CARE WITH CHLORHEXIDINE MOUTH WASH PROVIDED TO PT, PT TOLERATED WELL. ETT SUCTIONING WITH SCANT AMOUNTS OF SECRETIONS. COPIOUS ORAL SECRETIONS. PT FOLLOWING SIMPLE COMMANDS AT THIS TIME. RESTRAINTS CHECKED WITH PASSIVE ROM.
--- NOTE | 2017-08-31 20:54 | NUR ---
PROPOFOL INCREASED TO 15 MCG/KG/MIN AT THIS TIME, PT RASS 1+, PULLING AT RESTRAINTS, BECOMING TACHYCARDIC, KICKING LEGS, HITTING SIDERAILS. PT NODDED "YES" WHEN ASKED IF UNCOMFORTABLE.
--- NOTE | 2017-08-31 21:00 | NUR ---
PIP 22, PEEP 5, ETCO2 43, BUMEX GTT 0.5 MG/HR (2ML/HR)
--- NOTE | 2017-08-31 22:35 | NUR ---
BUMEX GTT DECREASED TO 0.25 MG/HR (1 ML/HR) AT THIS TIME
--- NOTE | 2017-09-01 00:03 | NUR ---
PHENYLEPHRINE INCREASED TO 65 MCG/MIN DUE TO MAP <65; BP 109/67 MAP 78 FOLLOWING TITRATION; PROPOFOL REMAINS AT 15 MCG/KG/MIN. BUMEX GTT AT 0.25 MG/HR (1 ML/HR). RASS -2, PT FOLLOWING SIMPLE COMMANDS AND OPENING EYES. RESIDUAL TUBE FEED 10ML. 100 ML FLUID FLUSH GIVEN. PIP 20, ETCO2 43, PEEP 5, RR 21, FIO2 30%; ALL OTHER VENT SETTINGS REMAIN SAME 1999. PT FLOATED ON BACK WITH SUPPORT OF PILLOWS ON BOTH SIDES. RESTRAINTS INTACT WITH SCMS WNL BILATERALLY ON HANDS. PT SPONTANEOUSLY MOVING ALL EXTREMETIES INTERMITTENTLY. PT PROVIDED WITH ORAL CARE WITH CHLORHEXIDINE MOUTH WASH, ETT TUBE SUCTIONED, PT TOLERATED WELL.
--- NOTE | 2017-09-01 02:00 | NUR ---
PT TUREND TO RIGHT SIDE AT THIS TIME
--- NOTE | 2017-09-01 04:15 | NUR ---
PT REPOSITIONED TO LEFT SIDE AT THIS TIME; PASSIVE RANGE OF MOTION IN UPPER EXTREMETIES BILATERALLY; ORAL CARE PROVIDED TO PATIENT WITH CHLORHEXIDINE WASH AND SUCTIONING. ETT SUCTIONING, PT TOLERATED WELL. PT ABLE TO NOD "YES" AND "NO" TO QUESTIONS WHEN ASKED. OG PLACEMENT VERIFIED WITH 30 CC AIR BOLUS WITH TUBE FEEDING BAG CHANGED AT THIS TIME. RESIDUAL TUBE FEEDING ZERO ML. FOAM DRESSING INTACT ON PATIENT COCCYX. FOAM DRESSING MEDIALLY PLACED BETWEEN SHOULDER BLADES, REDDENED AREAS ALONG SPINE, BLANCHABLE. TWO LINES ON FOREHEAD RED, BLANCHABLE. HAT REMOVED FROM PATIENT TO ALLOW ABRASSION AREA ON FOREHEAD TO BE RELIEVED OF PRESSURE.
--- NOTE | 2017-09-01 08:00 | NUR ---
ASSESSMENT DONE, REMAINS ON VENT AT FIO2-30%, VT-480, CMV-12, PEEP-5, PIP-20, ETCO2-45. FLORES CATH PATENT, CLEAR YELLOW URINE NOTED. BUMX GTT AT 1 ML/HR, EQUALS 0,25 MG/HR. REMAINS IN WRIST RESTRAINTS, ROM OF ARMS DONE. OG TUBE PATENT WITH ENSURE INFUSING AT 20 ML/HR. IS FOLLOWING COMMANDS AT THIS TIME. PROPOFOL GTT AT 15 MCG/KG/MIN. PHENYLEPHRINE GTT AT 65 MCG/MIN.
--- NOTE | 2017-09-01 09:20 | NUR ---
PROPOFOL GTT DECREASED TO 5 MCG/KG/MIN PT TO GO ON CPAP. THIS DONE PER DR. VASQUEZ ORDERS.
--- NOTE | 2017-09-01 09:32 | NUR ---
PROPOFOL GTT AT 5 MCG/KG/MIN. AWAITING CPAP PER RT.
--- NOTE | 2017-09-01 09:40 | NUR ---
TO CPAP AT 0940 5/5. 30%.
--- NOTE | 2017-09-01 09:45 | NUR ---
CPAP TO FULL SUPPORT, AFTER THIS DONE RESP RATE LOPEZ TO 28-30 FROM 40 BPM.
--- NOTE | 2017-09-01 09:46 | NUR ---
RESP RATE ON CPAP-35 BPM. ETCO2-41, HR-97, BP-100/60.
--- NOTE | 2017-09-01 10:50 | NUR ---
SPONGE BATH GIVEN, INC OF LIQUID SMALL AMOUNT STOOL. POSITIONED TO LEFT SIDE. PROPOFOL GTT AT 5 MCG/KG/MIN.
--- NOTE | 2017-09-01 11:28 | NUR ---
SUCTIONED PRN. PHYS THERAPY HERE TO WORK WITH PATIENT.
--- NOTE | 2017-09-01 12:00 | NUR ---
DR. VASQUEZ HERE TO SEE PATIENT AND HAD LONG VISIT REGRADING TREATMENT.
--- NOTE | 2017-09-01 12:20 | NUR ---
OT HERE, WRAPS TO LEGS OFF, YSABEL HOSE APPLIED WELL SCD'S AND HEEL PROTECTORS. PROPOFOL GTT NOW AT 13 MCG/KG/MIN.
--- NOTE | 2017-09-01 12:30 | NUR ---
INC OF SM AMT OF LIQUID STOOL. REPOSITIONED.
--- NOTE | 2017-09-01 13:31 | NUR ---
BUMEX TO 2 ML/HR=.5 MG/HR. TUBE FEEDING TO JEVITY AT 20 ML/HR.
--- NOTE | 2017-09-01 15:00 | NUR ---
NO CHANGES, DAUGHTER AT BEDSIDE ALL DAY. RESTFUL ON PROPOFOL 13 MCG/KG/MIN.
--- NOTE | 2017-09-01 15:40 | NUR ---
UPON REPOSITIONING PATIENT, HAD SMALL INC LIQUID BM. DIFUSE RASH NOTED ON BACK, ASKED PATIENT IF HAD ITCHING, INDICATED NO ITCHING.
--- NOTE | 2017-09-01 16:00 | NUR ---
ASSESSMENT UNCHANGED. DR. VASQUEZ AWARE OF RASH ON BACK. NO FUTHER ORDERS.
--- NOTE | 2017-09-01 18:20 | NUR ---
TURNED. DRAW SHEET CHANGED. SMALL LIQUID BM.
--- NOTE | 2017-09-01 19:07 | NUR ---
NO CHANGES, REPORT TO NEXT SHIFT.
--- NOTE | 2017-09-01 19:45 | NUR ---
PT SHIFT REPORT RECEIVED FROM DAY SHIFT RN. PT IS RESTING IN BED AT THIS TIME. DAUGHTER MELLY AT BEDSIDE. PT RESTRAINTS IN PLACE. VENTILATOR AT VT 480, CMV-10, PEEP-5, FIO2- 30%. WILL CONTINUE TO CLOSELY MONITOR.
--- NOTE | 2017-09-01 20:30 | NUR ---
PT SHIFT ASSESSMENT COMPLETED. PT TURNED AND CLEANED. PT HAD SMALL SMEAR OF STOOL PRESENT. NEW PAD PLACED AND REPOSITIONED PT TO SIDE WITH PILLOW SUPPORT. PT TOLERATED WELL. NG TUBE RESIDUAL CHECKED 10MLS PRESENT. GAVE POTASSIUM AND FLUSHED TUBE. ORAL CARE DONE. SUCTIONED WITH LITTLE BIT OF BELCHER SPUTUM PRESENT. RESTRAINTS CHECKED AND REPLEASED AND ROM PROVIDED. PT DAUGHTER UPDATED ON PLAN OF CARE FOR THE NIGHT. NO FURTHER QUESTIONS AT THIS TIME. WILL CONTINUE TO CLOSELY MONITOR.
--- NOTE | 2017-09-01 22:00 | NUR ---
PT RESTING IN BED AND REMAINS ON VENTILATOR WITH UNCHANGED SETTINGS. MONITORING URINE Q1 HOUR PER ORDERS. PT REPOSITIONED WITH PILLOW SUPPORT. PT TOELRATED WELL. RESTRAINTS CHECKED. CMS INTACT. PT SUCTIONED NEEDED. SPOKE WITH MD REGUARDING VITAL SIGN FREQUENCY. PER MD REPEAT BLOOD PRESSURE Q1 HOUR. PT HAS BEEN ON SAME DOES OF ANDREEA-SYNEPHRINE FOR 24HRS WITH NO TITRATION. WILL CONTINUE TO CLOSELY MONITOR AT THIS TIME. PT DAUGHTER REMAINS AT BEDSIDE.
--- NOTE | 2017-09-02 00:15 | NUR ---
PT REPOSITIONED IN BED WITH PILLOW SUPPORT. PT TOLERATED WELL. PT SUCTIONED AND ORAL CARE PROVIDED. CHECKED RESTRAINTS AND PROVIDED PT ROM BEFORE REPLACING RESTRAINTS. CMS INTACT. MONITOR FLORES OUTPUT Q1 HOUR. NO OTHER ISSUES AT THIS TIME. WILL CONTINUE TO CLOSELY MONITOR.
--- NOTE | 2017-09-02 02:16 | NUR ---
REPOSITION PT WITH PILLOW SUPPORT. PT TOLERATED WELL. PT CAN ANSWER YES/NO QUESTIONS WITH NODING HIS HEAD WHEN ASKED. PT RESTRAINTS CHECKED AND ROM PROVIDED. RESTRAINTS REPLACED FOR PT SAFETY D/T TUBES. PT DAUGHTER REMAINS IN ROOM. NO QUESTIONS AT THIS TIME. WILL CONTINUE TO CLOSELY MONITOR.
--- NOTE | 2017-09-02 04:15 | NUR ---
PT REPOSITIONED WITH PILLOW SUPPORT. PT IS RESTING OFF AND ON. PT CAN ANSWER YES/NO QUESTIONS WITH HEAD NOD. PT HAD SMALL SMEAR PRESENT. CLEANED AND CHANGED PAD. FLORES CATH CARE PROVIDED. ASSESSMENT COMPLETED AND REMAINS UNCHANGED FROM PRIOR ASSESSMENTS. ORAL CARE PROVIDED. RESTRAINTS CHECKED AND ROM PROVIDED. CMS REMAINS INTACT. YSABEL HOSE AND SCDS IN PLACE. HEEL PROTECTORS ON.
--- NOTE | 2017-09-02 07:40 | NUR ---
PROPOFOL GTT DECREASED TO 5 MCG/KG/MIN FOR CPAP TRIAL. ASSESSMENT DONE.
--- NOTE | 2017-09-02 08:15 | NUR ---
CPAP VIA VENT PER RT.
--- NOTE | 2017-09-02 08:40 | NUR ---
HAD PERIOD OF APNEA WHILE ON CPAP, BACK TO FULL VENT SUPPORT. DR. VASQUEZ IN ROOM AND AWARE.
--- NOTE | 2017-09-02 08:52 | NUR ---
propofol TO OFF AT THIS TIME.
--- NOTE | 2017-09-02 09:05 | NUR ---
RESPONSIVE. FOLLOWING MOST COMMANDS. GRIMACE CONSTANT ON FACE. ORDERES RECIEVED TO RESTART PROPOFOL, THIS DONE.
--- NOTE | 2017-09-02 09:19 | NUR ---
PROPOFOL TO 13 MCG/KG/MIN. PHENYLEPHRINE DECREASED TO 55 MCG/MIN.
--- NOTE | 2017-09-02 10:00 | NUR ---
bp-107/49 (64),phenylephrine gtt decreased to 50 mcg/min.
--- NOTE | 2017-09-02 11:00 | NUR ---
AM CARES DONE. POSITIONED TO RIGHT SIDE. PROPOFOL GTT DECREASED TO 11 MCG/MIN. INC OF VERY SMALL LIQUID STOOL.
--- NOTE | 2017-09-02 11:00 | NUR ---
REMAINS ON PHENYLEPHRINE GTT AT 50 MCG/MIN.
--- NOTE | 2017-09-02 11:30 | NUR ---
RESP RATE UP TO 40. COUGHING. PROPOFOL GTT INCREASED BACK TO 13 MCG/MIN. REPOSITIONED TO LEFT SIDE. REMAINS ON BUMEX GTT AT 2 ML/HR, THIS EQUALS 0.5 MG/HR. FAMILY IN ROOM.
--- NOTE | 2017-09-02 17:44 | NUR ---
REMAINS OFF PROPOFOL, DR. VASQUEZ HAS TALKED WITH PATIENT AND FAMILY\FRIENDS ABOUT PLAN OF CARE. PATIENT IS UNDERSTANDING AND AGREES WITH PLAN. WILL RESTART PROPOFOL AFTER FAMIL TALK. PHENYLEPHRINE GTT AT 30MCG/MIN. DR. VASQUEZ AWARE. ORDERS RECIEVED TO INCREASE GTT TO 40MCG/MIN. THIS DONE.
--- NOTE | 2017-09-02 19:30 | NUR ---
PT SHIFT REPORT RECEIVED FROM DAY SHIFT RN. PT RESTING IN BED AND REMAINS ON VENTILATOR. FAMILY AT THE BEDSIDE. FAMILY UPDATED ON PLAN OF CARE FOR THE EVENING. NO QUESTIONS AT THIS TIME. VENTILATOR SETTINGS VT-480, FIO2- 30%, CMV- 10, PEEP-5.
--- NOTE | 2017-09-02 20:00 | NUR ---
REPOSITIONED PT IN BED WITH PILLOW SUPPORT. PT TOELRATED WELL. FLORES EMPTIED, BHUPINDER PAD REPLACED AND ANAHI CARE PROVIDED, FLORES CATH CARE DONE. ASSESSMENT COMPLETED. BREATH SOUNDS COARSE AND DIMINISHED IN RIGHT LOWER SIDE. BOWEL TONES PRESENT. NO BM PRESENT. EDEMA IS MUCH IMPROVED. RESTRAINTS REMOVED AND REPLACED AFTER PROVIDING ROM. CMS INTACT. MEDICATIONS GIVEN THROUGH OG TUBE AND FLUSHED WITH WATER. TUBE FEED RUNNING AT 30MLS/HR. YSABEL HOSE IN PLACE, SCDS ON, HEEL PROTECTORS ON. WILL CONTINUE TO CLOSELY MONITOR.
--- NOTE | 2017-09-02 22:15 | NUR ---
REPOSITIONED PT TO LEFT SIDE WITH PILLOWS. PT NODS HEAD TO QUESTIONS AND WHEN ASKED IF HE IS COMFORTABLE PT NODS HEAD YES. RESTRAINTS REMOVED AND REPLACED. CMS INTACT. ROM PROVIDED. FLORES OUTPUT Q1 HOUR IS QUANTITY SUFFICIENT. ORAL CARE PROVIDED AND SUCTIONED. PT TOELRATED WELL. WILL CONTINUE TO CLOSELY MONITOR.
--- NOTE | 2017-09-03 | NUR ---
PER MD TO INCREASE COMFORT FOR PATIENT IF PT IS COMFORTABLE ON LEFT SIDE LET PT REST ON THAT SIDE. WILL TURN IF PT BECOMES RESTLESS AND/OR NOTED TO BE UNCOMFORTABLE. PT IS RESTING WELL AT THIS TIME. WHEN ASKED IF HE IS COMFORTABLE TO NODS YES. WILL ENCOURAGE REST AT THIS TIME. ASSESSMENT REMAINS UNCHANGED FROM PREVIOUS ASSESSMENT. WILL CONTINUE 1 HOUR URINE OUTPUT. CHECKED OG TUBE RESIDUALS WITH 5 ML PRESENT.
--- NOTE | 2017-09-03 02:00 | NUR ---
PT REPOSITIONED WITH PILLOW SUPPORT FOR COMFORT. PT IS RESTING WELL AT THIS TIME. PT TOLERATED WELL. SCDS, YSABEL HOSE, AND HEEL PROTECTORS ON. VENTILATOR SETTINGS REMAIN UNCHANGED. PT DAUGHTER RESTING IN PATIENTS ROOM.
--- NOTE | 2017-09-03 04:30 | NUR ---
PT RESTING IN BED. REPOSITIONED PT FOR COMFORT. PT IS RESTING WELL AT THIS TIME. PROVIDED ORAL CARE AND SUCTIONING. ASSESSMENT REMAINS UNCHANGED FROM PREVIOUS ASSESSMENT. PT ANSWERES YES/NO QUESTIONS WITH NODING HIS HEAD. PT HAS SLEPT WELL TONIGHT. RESTRAINTS CHECKED, ROM PROVIDED, RESTRAINTS SECURED. NO OTHER ISSUES AT THIS TIME. PT DAUGHTER MELLY IS VERY INVOLVED IN CARE AND IS STAYING IN THE ROOM WITH THE PT. MONITOR URINE OUTPUT Q1 HOUR. WILL CONTINUE TO CLOSELY MONITOR AT THIS TIME.
--- NOTE | 2017-09-03 06:11 | NUR ---
PT RESTING WELL AT THIS TIME. WILL CONTINUE TO ENCOURAGE REST. PT REMAINS ON VENTILATOR WITH UNCHANGED SETTING. WILL CONTINUE TO MONITOR URINE Q1 HOUR. PT DAUGHT AT BEDSIDE AND UPDATED OF PLAN OF CARE. WILL CONTINUE TO CLOSELY MONITOR.
--- NOTE | 2017-09-03 08:00 | NUR ---
ASSESSMENT DONE. DAUGHTER IS AT BEDSIDE.
--- NOTE | 2017-09-03 09:00 | NUR ---
PROPOFOL GTT TO 7 MCG/KG/MIN PER DR. VASQUEZ ORDERS.
--- NOTE | 2017-09-03 09:10 | NUR ---
PROPOFOL GTT TO OFF, PICC LINE ASPIRATED FOR 2 ML, THEN IRRIGATED WITH 10 ML NS.
--- NOTE | 2017-09-03 09:20 | NUR ---
IS AWAKE,EXTABATION PROCESS EPLAINED TO PATIENT, INDICATES UNDERSTANDING. FAMILY/FRIENDS ARE IN ROOM.
--- NOTE | 2017-09-03 09:30 | NUR ---
SPOKE WITH PATIENTS DAUGHTER AND SON-IN-LAW. THEY STATE PATIENT IS GOING TO "COME OFF" THE VENTILATOR TODAY. DAUGHTER STATES SHE IS NOT SURE PATIENT WILL "LIVE LONG". THEY HAD A FEW QUESTIONS REGARDING POSSIBLE HOMES IN AREA. INFORMATION GIVEN. QUESTIONS ANSWERED. STAFF IN ROOM GIVING SUPPORT ALSO.
--- NOTE | 2017-09-03 09:36 | NUR ---
HOB ELEVATED, EXTABATED PER RT. PLACED ON BIPAP AT 30%, 15/5.
--- NOTE | 2017-09-03 09:59 | NUR ---
RESP RATE-30. FAMILY IN ROOM
--- NOTE | 2017-09-03 10:13 | NUR ---
IS AWAKE WITH HOB ELEVATED. EXPLAINED TO PATIENT EXTABATION PROCESS, INDICATES UNDERSTANDING. FAMILY/FRIENDS IN ROOM. DR. VASQUEZ HERE.
--- NOTE | 2017-09-03 11:58 | NUR ---
VERY RESTLESS, ATIVAN 1 MG IV GIVEN. FAMILY REMAIN AT BEDSIDE.
--- NOTE | 2017-09-03 12:00 | NUR ---
RESTLESS. ATIVAN 1 MG IV GIVEN.
--- NOTE | 2017-09-03 12:00 | NUR ---
BUMEX AND PHENYLEPHRINE GTT DC'D PER DR. VASQUEZ'S ORDERS.
--- NOTE | 2017-09-03 13:24 | NUR ---
PT ON BI-PAP, FAMILY AND METAL FINISH INSPECTOR IN . DAUGHTER MELLY FEELS SHE IS KNOWLEDGABLE REGARDING COURSE OF TREATMENT OF PT AND SEEMS PLEASED WITH CARE. EXTENDED BLESSING, WILL FOLLOW NEEDED
--- NOTE | 2017-09-03 13:30 | NUR ---
UPDATED ON PATIENT. BIPAP PRESSURE NOW 10/.
--- NOTE | 2017-09-03 16:15 | NUR ---
DR. VASQUEZ HERE TO SEE PATIENT AND TALK WITH FAMILY.
--- NOTE | 2017-09-03 16:26 | NUR ---
FENTANYL 50 MCG IV GIVEN PER ORDERS. WILL HANG FENTANYL GTT ORDERED. RESP RATE 20. SHALLOW. STRONG RADIAL PULSE. COMFORT CARE AT THIS TIME.
--- NOTE | 2017-09-03 16:30 | NUR ---
oxymask applied at 3 l. FLORES CATH REMAINS PATENT. OXIMETER, BP CUFF DC'D. REPOSITIONED. FAMILY FRIENDS ARE IN ROOM.
--- NOTE | 2017-09-03 18:30 | NUR ---
FENTANYL MARKET REPORTER HUNG PER DR. VASQUEZ'S ORDERS.
--- NOTE | 2017-09-03 19:13 | NUR ---
NO CHANGES, REPORT GIVEN.
--- NOTE | 2017-09-03 20:22 | NUR ---
PT RESTING IN BED WITH FAMILY AT BEDSIDE. FENTANYL FLAME BURNER IN PLACE. DISCUSSED COMFORT MEASURES. FAMILY VERBALIZED UNDERSTANDING. WILL CONTINUE TO MONITOR.
--- NOTE | 2017-09-03 22:08 | NUR ---
pt appeared slightly restless with increased work of breath. per family request gave 1mg ativan iv.
--- NOTE | 2017-09-03 23:36 | NUR ---
in room with pt. pts work of breathing increased and appears restless. per daughter request gave 1mg ativan iv.
--- NOTE | 2017-09-03 23:40 | NUR ---
md called to check in on pt. updated MD on medication given on my shift. order to increase fentynal PALS SPECIALIST to 50mcg continious and to increase on demand dose to 50mcg. spoke with daughter at bedside regarding dose increase. daughter agreeable.
--- NOTE | 2017-09-04 03:36 | NUR ---
daughter called this RN into room for pts increased work of breathing. gave on demand dose of fentanyl. pt work of breathing didnt change with fentanyl dose. per request of pts daughter. gave 1mg ativan iv.
--- NOTE | 2017-09-04 07:05 | NUR ---
BEDSIDE HANDOFF REPORT RECEIVED FROM CCU RN. PT RESTING IN BED. FLORES CATH IN PLACE. FENTANYL PRODUCT SUPPORT CONSULTANT WITH CONTINUOUS RATE, DAUGTER REQUESTING BOLUS DOSE FOR INCREASED WORK OF BREATHING, GIVEN. PT ON OXYMASK AT 3L. PT APPEARS COMFORTABLE.
--- NOTE | 2017-09-04 08:40 | NUR ---
PT'S DAUGHTER REQUESTING ATIVAN FOR INCREASED WORK OF BREATHING. 1 MG IV ATIVAN GIVEN. PICC LINE ASSESSED, PATENT, BLOOD RETURN, HEPARIN LOCKED. RESPIRATORY RATE 10, EVEN AND SLIGHTLY LABORED. FLORES CATH DRAINING FREELY YELLOW URINE. PT ON 3L OXIMASK FOR COMFORT. FAMILY AT BEDSIDE.
--- NOTE | 2017-09-04 11:30 | NUR ---
PT'S DAUGHTER REQUESTING MEDICATION FOR INCREASED WOB. 50 MCG FENTANYL SHADOWGRAPH OPERATOR GIVEN. PT REPOSITIONED AND ASSESSED FOR COMFORT.
--- NOTE | 2017-09-04 12:08 | NUR ---
MET WITH FAMILY OF PT-THEY WERE HEADING OUT TO GET SOME REST. PT'S DAUGHTER HAD SOME QUESTIONS REGARDING END OF LIFE ISSUES. WILL CONTINUE TO FOLLOW NEEDED
--- NOTE | 2017-09-04 13:00 | NUR ---
PT RESTING IN BED WITH EYES CLOSED, RESPIRATIONS 8/MIN, EVEN AND UNLABORED. FAMILY AT BEDSIDE.
--- NOTE | 2017-09-04 14:10 | NUR ---
PT RESTING IN BED. FRIEND AT BEDSIDE. PT APPEARS COMFORTABLE, BREATHING UNLABORED, PT QUIET. FRIEND DENIES NEEDS AT THIS TIME.
--- NOTE | 2017-09-04 14:39 | NUR ---
PLACED SMALL PASSAGE QUILT ON PT, AND INSTRUCTED PT'S EPIC AMBULATORY ANALYST REGARDING THE CONCEPT OF THE QUILT.
--- NOTE | 2017-09-04 16:10 | NUR ---
BED BATH, FLORES CARE, ORAL CARE, GOWN CHANGED, LINENS CHANGED. PT REPOSITIONED TO RIGHT SIDE. PT GRIMMACING, APPEARS UNCOMFORTABLE, BOLUS FENTANYL DOSE GIVEN. PT WITH OXYMASK AT 3L.
--- NOTE | 2017-09-04 18:45 | NUR ---
PT ON COMFORT CARE, FAMILY AT BESIDE, PT'S DAUGHTER MELLY MAIN CARE PROVIDER. PT GIVEN 1 MG ATIVAN X 2. 50 MCG FENTANYL BOLUS X 3 AND 50 MCG PER HOUR CONTINUOUS. PT TURNED Q2H. BED BATH COMPLETED. FLORES CATH IN PLACE. OXIMASK REMOVED FOR PT COMFORT. DOUBLE LUMEN PICC LINE PATENT.
--- NOTE | 2017-09-04 19:21 | NUR ---
BEDSIDE REPORT RECEIVED FROM RNS NIDIA AND JUSTUS. PT APPEARS TO BE SLEEPING, EYES CLOSED, RR 12. FLORES CATHETER EMPTIED AT THIS TIME. BLENDING COORDINATOR PUMP INFUSING PICC LINE. PT APPEARS COMFORTABLE, NOT MOVING EXTREMITIES. FAMILY AT BEDSIDE.
--- NOTE | 2017-09-04 20:35 | NUR ---
CHECKED IN WITH FAMILY, LAUREANO SIMMONS REPOSITIONED PT AND ADMINISTERED PIGMENT PUMPER BOLUS, NO ADDL REQUESTS. PT APPEARS COMFORTABLE.
--- NOTE | 2017-09-04 21:40 | NUR ---
PRN ATIVAN ADMINISTERED TO PT PER FAMILY REQUEST, PT GROANING, MOVING ARMS OCCASIONALLY. FAMILY REFUSES REPOSITIONING AT THIS TIME. ORAL CARE WITH MOUTH SWABS, CHAPSTICK APPLIED AT THIS TIME. PTS FACE WASHED WITH WASH CLOTH. FLORES DRAINING. NO ADDL REQUESTS AT THIS TIME. LIGHTS DIMMED IN ROOM.
--- NOTE | 2017-09-04 22:55 | NUR ---
PRN ATIVAN AND PRN FENTANYL BOLUS ADMINISTERED PER FAMILY REQUEST, STATES PT STATED "OW". PT IS RESTLESS RAISING ARMS, OCCASIONAL GRIMACE. EYES REMAIN CLOSED. FENTANYL BINDERY TECHNICIAN VILE REPLACED. VITALS COMPLETED AT THIS TIME PER FAMILY REQUEST, BP 107/66 (76), SPO2 49% ON RA, HR 110, RR 14. DAUGHTER INSTRUCTED TO USE CALL LIGHT NEEDED, NO ADDL REQUESTS AT THIS TIME.
--- NOTE | 2017-09-04 23:45 | NUR ---
PT REPOSITIONED WITH UNDER BASTER SINTA ASSIST TO LEFT SIDE WITH PILLOWS. PT APPEARS COMFORTABLE, NOT MOVING EXTREMITIES, EYES CLOSED, ABDOMINAL BREATHING. DAUGHTER AT BEDSIDE. MOUTH SWABS AND CHAPSTICK APPLIED. FLORES DRAINING MINIMAL URINE OUTPUT.
--- NOTE | 2017-09-05 01:31 | NUR ---
CALL LIGHT ANSWERED, PT DAUGHTER REQUESTING PRN MEDICATION. PT WAIVING ARMS AROUND. BREATHING IS SHALLOW, STOMACH BREATHING. EYES CLOSED. RR 16. PRN ATIVAN AND PRN BOLUS OF FENTANYL WITH FREEZER ASSISTANT ADMINISTERED. PT APPEARS COMFORTABLE. FLORES DRAINING. MOUTH SWAB TO PT. PT'S DAUGHTER GIVEN WARM BLANKET. NO ADDL REQUESTS.
--- NOTE | 2017-09-05 03:52 | NUR ---
CHECKED ON PT, APPEARS TO BE SLEEPING, EYES CLOSED, RR 18, ABDOMINAL BREATHING, SHALLOW. FLORES CATHETER DRAINING. LIGHTS OFF IN ROOM.
--- NOTE | 2017-09-05 05:48 | NUR ---
PRN ATIVAN AND PRN FENTANYL BOLUS ADMINISTERED PER FAMILY REQUEST FOR AGITATION, PT MOVING EXTREMITIES. RR 16, SHALLOW ABDOMINAL BREATHING WITH ACCESSORY MUSCLE USE. MOUTH SWABS AND CHAPSTICK APPLIED TO PT. FLORES CATHETER EMPTIED. DAUGHTER AT BEDSIDE.
--- NOTE | 2017-09-05 06:03 | NUR ---
PRN ATIVAN ADMINISTERED X 4 THIS SHIFT FOR AGITATION. COSTUME CUTTER PUMP WITH CONTINUOUS FENTANYL INFUSION, FENTANYL BOLUS X 4 THIS SHIFT. FLORES CATHETER DRAINING. VITALS X 1 THIS SHIFT PER FAMILY REQUEST, SPO2 46-49 ON ROOM AIR. SHALLOW ABDOMINAL BREATHING WITH ACCESSORY MUSCLE USE. REPOSITIONED THROUGHOUT SHIFT. DAUGHTER MELLY AND FAMILY IN ROOM THROUGHOUT SHIFT. ORAL CARE THROUGHOUT SHIFT.
--- NOTE | 2017-09-05 07:54 | NUR ---
PT SLIGHT AGGITATED, FACIAL GRIMACE, AND OCCASSIONAL MOUTH MOVEMENT. CHEMISTRY QUALITY CONTROL ANALYST PUMP 50 MCG CONTINUOUS, 50 MCG BOLUS X1 GIVEN. PT NOW RESTING CONFORTABLY. RESPIRATIONS 18/MIN, EVEN, SHALLOW, USE OF ABDOMINAL MUSCLES. PT'S DAUGHTER MELLY AT BEDSIDE.
--- NOTE | 2017-09-05 08:10 | NUR ---
PT'S DAUGHTER REQUESTING MEDICATIONS FOR INCREASED AGGITATION. PT RESTING IN BED, OCCANSIONAL FACIAL GRIMACE, RAISING OF ARMS, AND MOUTH MOVEMENTS. 1 MG ATIVAN GIVEN. PT'S DAUGHTER REQUESTING PT NOT TO BE TURNED 2QH AND ONLY MINOR ADJUSTMENTS NEEDED.
--- NOTE | 2017-09-05 09:15 | NUR ---
PT'S DAUGHTER REQUESTING MEDICATION FOR AGGITATION. 1 MG ATIVAN AND 50 MCG FENTANYL BOLUS GIVEN.
--- NOTE | 2017-09-05 11:00 | NUR ---
RISK MANAGEMENT DIRECTOR DOSE ADJUSTED AT THIS TIME, CONTINUOUS DOSE INCREASED TO 125MCG/HR, 50 MCG BOLUS. PT RESTING COMFORTABLY, WILL CONTINUE TO MONITOR.
--- NOTE | 2017-09-05 13:05 | NUR ---
CALL LIGHT ANSWERED, SEWER SYSTEM SUPERVISOR MEDICATION NEEDING REFILLED. PHONE CALL TO PHARMACY REGARDING MEDICATION, MEDICATION TO BE BROUGHT UP. WILL AWAIT MEDICATION DELIVERY. PT REMAINS COMFORTABLE ON CONTINUOUS 125 MCCG/HR SEWER SYSTEM SUPERVISOR, NO ADDITIONAL MEDICATION GIVEN AT THIS TIME.
--- NOTE | 2017-09-05 13:40 | NUR ---
CAMP HOUSEKEEPER SYRINGE CHANGED. PT WITHOUT CONTINUOUS INFUSION DUE SYRINGE AVAILABILITY, DISCUSSED WITH DAUGHTER, DAUGHTER REQUESTINGBOLUS DOSE TO BE GIVEN. PT APPEARS COMFORTABLE, RESPIRATORY RATE 14. FAMILY AT BEDSIDE.
--- NOTE | 2017-09-05 14:09 | NUR ---
CONNECTED WITH PT'S DAUGHTER MELLY, I SENSE THAT SHE WILL NEED SOME TIME ALONE WITH HER DAD AT THE TIME OF HIS PASSING. SHE SAID YES, SHE HAS APPRECIATED THE LEVEL VIAL INSPECTOR AND TESTER BEING HERE, BUT NEEDS HER TIME WELL. LAUREANO JEROME HAS BEEN UPDATED, SHE AGREES AND WILL ASSIST IF NEEDED. I WILL ALSO MENTION THIS TO WHITE MIXING OPERATOR S.C. STAFF WELL. [facility] HAS BEEN SELECTED BY THE FAMILY AND PT IS TO BE CREMATED. WILL FOLLOW NEEDED, GOT THOSE PRESENT TO ALSO SHARE THEIR FAVORITE MEMORY OF PT. 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 GOD BLESS THEM, WILL FOLLOW NEEDED
--- NOTE | 2017-09-05 15:15 | NUR ---
FAMILY AT BEDSIDE. 125 MCG CONTINUOUS POWDER BLENDER AND POURER, CPOT SCORE 1. RESPIRATIONS 2-3/MIN AND SHALLOW. PT'S FAMILY DENIES ANY OTHR CONCERNS OF NEEDS AT THIS TIME.
--- NOTE | 2017-09-05 16:20 | NUR ---
FAMILY NOTIFIED CUSTOMER SERVICE REPRESENTATIVE PT MAY HAVE . ASCULTATED FOR HEART SOUNDS, UNABLE TO ASCULTATE. NO RESPIRATION NOTED. NO PALPABLE PULSE. NOTIFIED MD. MERCHANT TO BEDSIDE, TIME OF 1623. FAMILY ALLOWED PRIVACY WITH PATIENT. NURSING SECURITY MANAGEMENT SPECIALIST NOTIFIED. HEAD OF DIGITAL ADVERTISING & INTEGRATION MICHAEL NOTIFIED.
--- NOTE | 2017-09-05 17:00 | NUR ---
FLORES CATH AND PICC LINE DC'D WNL. ALL PERSONAL ITEMS RETURNED TO PT'S DAUGHTER AMY. [facility] NOTIFIED.
--- NOTE | 2017-09-05 17:13 | NUR ---
[facility] AT BEDSIDE TO TRANSFER BODY.
--- NOTE | 2017-09-05 17:20 | NUR ---
[facility] OFF UNIT WITH BODY AT THIS TIME. PERSONAL BELONGS WITH FAMILY.
--- NOTE | 2017-09-05 17:57 | NUR ---
I WAS CALLED INAT THE PASSING OF THIS PT. THE SON-IN-LAW SAID THE DAUGHTER HAD NOT HAD MUCH TIME ALONE WITH PT, SO I TALKED WITH HIM IN HALLWAY FOR A WHILE. I THEN MET THE DAUGHTER, PRAYED WITH THEM, AND WHEN THEY SAID TO CALL HOME I DID. I COVERED THE BODY WITH PASSAGE QUILT AND THEN THE FLAG, THE DAUGHTER, SON-IN-LAW, AND THEIR FRIENDS ESCORTED THE BODY WITH ME TO THE TRANSPORT VAN. AFTER THE VAN PULLED AWAY, THE DAUGHTER SAID THAT HER DAD RECIEVED THE BEST CARE POSSIBLE HERE, BUT SHE WAS TIRED OF THIS HOSPITAL.
== END 2017-09-05 17:20 | DRG 291 ==
LOC: ED 00:07 → CCU 01:58 → MS 01:58 → CCU 08-28 07:25 → MS 09-04 07:00
PROVIDERS: ADMIT Internal Medicine
PROC: 5A1955Z Respiratory Ventilation, Greater than 96 Consecutive Hours (ICD-10-PCS; 2017-08-27)
PROC: 02HV33Z Insertion of Infusion Device into Superior Vena Cava, Percutaneous Approach (ICD-10-PCS; principal; 2017-08-28)
DX: I50.21 Acute systolic (congestive) heart failure (principal); J96.02 Acute respiratory failure with hypercapnia; J69.0 Pneumonitis due to inhalation of food and vomit; J96.01 Acute respiratory failure with hypoxia; I42.9 Cardiomyopathy, unspecified; N17.9 Acute kidney failure, unspecified; J93.9 Pneumothorax, unspecified; E87.6 Hypokalemia; K80.20 Calculus of gallbladder without cholecystitis without obstruction; Z51.5 Encounter for palliative care; Z87.891 Personal history of nicotine dependence; R60.1 Generalized edema; N32.89 Other specified disorders of bladder; T50.1X5A Adverse effect of loop [high-ceiling] diuretics, initial encounter
CPT/HCPCS: 31500; 31720; 36415; 36569; 36600; 51702; 51798; 71045; 71260; 74018; 74177; 80048; 80053; 80069; 80076; 80162; 81001; 82271; 82378; 82607; 82746; 82803; 83605; 83690; 83735; 83880; 84100; 84425; 84484; 85025; 85379; 85610; 85730; 87040; 87070; 87088; 87205; 93005; 93010; 94002; 94003; 94640; 94660; 94762; 94799; 96374; 96375; 97140; 97161; 97165; 99285; J0330; J1120; J1160; J1650; J2060; J2270; J2370; J2405; J2543; J2704; J2765; J3010; J3411; J3475; J7050; Q9967